=== PATIENT | male | born 1930 | race African-American/Black ===

== ENCOUNTER 2016-12-08 19:50 | Inpatient (IN) | payer MEDICARE, OTHER ==
[~2016-12-08] VITALS: Ht 175.3 cm; Wt 77.1 kg
[2016-12-08 20:20] VITALS: BP 126/73
[2016-12-08 20:34] LABS: BASOPHILS % (AUTO) 1.7 % (0.0-2.0); EOSINOPHILS % (AUTO) 1.8 % (0.0-3.0); LYMPHOCYTES % (AUTO) 21.5 % (20.0-45.0); MEAN CORPUSCULAR HEMOGLOBIN 32.4 PG (27.0-31.0); MEAN CORPUSCULAR HGB CONC 33.1 G/DL (32.0-36.0); MEAN CORPUSCULAR VOLUME 98 FL (80-99); MEAN PLATELET VOLUME 7.9 FL (6.5-10.1); MONOCYTES % (AUTO) 13.9 % (1.0-10.0); NEUTROPHILS % (AUTO) 61.2 % (45.0-75.0); PLATELET COUNT 225 K/UL (150-450); RED BLOOD COUNT 3.92 M/UL (4.70-6.10); RED CELL DISTRIBUTION WIDTH 11.9 % (11.6-14.8); WHITE BLOOD COUNT 5.7 K/UL (4.8-10.8)
[2016-12-08 20:52] LABS: TROPONIN I < 0.30 ng/mL (<=0.30)
[2016-12-08 20:56] LABS: ALANINE AMINOTRANSFERASE 66 U/L (3-41); ALBUMIN/GLOBULIN RATIO 0.6 (1.0-2.7); ANION GAP 13 (5-15); ASPARTATE AMINO TRANSFERASE 73 U/L (5-40); CALCIUM 9.9 mg/dL (8.6-10.2); CARBON DIOXIDE 29 mEQ/L (20-30); CHLORIDE 92 mEQ/L (98-107); CREATININE 1.1 mg/dL (0.7-1.2); HEMOLYSIS 29; POTASSIUM 4.9 mEQ/L (3.4-4.9); SODIUM 134 mEQ/L (135-145); TOTAL PROTEIN 9.7 g/dL (6.6-8.7)
[2016-12-08 21:07] LABS: ABG ALLEN TEST POSITIVE; ABG PCO2 48.1 mmHg (35.0-45.0)
--- NOTE | 2016-12-08 21:10 | Emergency Room Report ---
History of Present Illness General Chief Complaint: Dyspnea/Respdistress Source: EMS (JOSSELYN CAPELLAN M.D.) Present Illness HPI 86-year-old male presents to ED complaining of shortness of breath. States symptoms started today while at rest. Patient states he feels better upon arrival to the ER. Patient states he was just discharged from [facility] yesterday for same reason. Patient states he does not know why he is short of breath. Denies any chest pain. Denies any cough. Denies any fevers or chills. No other aggravating or relieving factors. Denies any other associated symptoms (JOSSELYN CAPELLAN M.D.) Allergies: Coded Allergies: No Known Allergies (Unverified , 12/08/16) Patient History Past Medical History: [place] Past Surgical History: none Pertinent Family History: none Social History: Denies: alcohol use, drug use, smoking Immunizations: UTD Reviewed Nursing Documentation: PMH: Agreed, PSxH: Agreed (JOSSELYN CAPELLAN M.D.) Nursing Documentation-PMH Past Medical History: No History, Except For Hx Cardiac Problems: Yes - SHREYA (JOSSELYN CAPELLAN M.D.) Review of Systems All Other Systems: negative except mentioned in HPI (JOSSELYN CAPELLAN M.D.) Physical Exam Vital Signs Date Time Temp Pulse Resp B/P Pulse Ox O2 Delivery O2 Flow Rate FiO2 12/08/16 19:44 84 16 162/90 95 Room Air 12/08/16 20:20 97.7 Sp02 EP Interpretation: reviewed, normal General Appearance: no apparent distress, alert, GCS 15, non-toxic, mild distress, thin Head: normocephalic, atraumatic Eyes: bilateral eye PERRL, bilateral eye normal inspection ENT: hearing grossly normal, normal pharynx, no angioedema, normal voice Neck: full range of motion, supple/symm/no masses Respiratory: chest non-tender, lungs clear, normal breath sounds, speaking full sentences Cardiovascular #1: regular rate, rhythm, no edema Cardiovascular #2: 2+ carotid (R), 2+ carotid (L), 2+ radial (R), 2+ radial (L) , 2+ dorsalis pedis (R), 2+ dorsalis pedis (L) Gastrointestinal: normal bowel sounds, non tender, soft, non-distended, no guarding, no rebound Rectal: deferred Genitourinary: normal inspection, no CVA tenderness Musculoskeletal: back normal, gait/station normal, normal range of motion, non- tender Neurologic: alert, oriented x3, responsive, motor strength/tone normal, sensory intact, speech normal Psychiatric: judgement/insight normal, memory normal, mood/affect normal, no suicidal/homicidal ideation Reflexes: 3+ bicep (R), 3+ bicep (L), 3+ tricep (R), 3+ tricep (L), 3+ knee (R) , 3+ knee (L) Skin: normal color, no rash, warm/dry, well hydrated Lymphatic: no adenopathy (JOSSELYN CAPELLAN M.D.) Medical Decision Making ER Course Pt s/o to me for CT scan report. CT showed no PE. Has CM with atelectasis vs infiltrate. (JARROD CASTILLO M.D.) EKG Diagnostic Results Rate: normal Rhythm: NSR ST Segments: no acute changes ASA given to the pt in ED: No (JOSSELYN CAPELLAN M.D.) Rhythm Strip Diag. Results EP Interpretation: yes Rhythm: NSR, no PVC's, no ectopy (JOSSELYN CAPELLAN M.D.) Chest X-Ray Diagnostic Results EP Interpretation: Yes Findings: no consolidation, no effusion, no pneumothorax, no acute cardiopulmonary disease, other - ?nodules on CXR Number of Views: 1 (JOSSELYN CAPELLAN M.D.) CT/MRI/US Diagnostic Results CT/MRI/US Diagnostic Results : Imaging Test Ordered: CT chest Impression Read by radiologist. No PE. RLL airspace opacity. (JARROD CASTILLO M.D.) Last Vital Signs Date Time Temp Pulse Resp B/P Pulse Ox O2 Delivery O2 Flow Rate FiO2 12/08/16 20:20 80 21 Room Air 12/08/16 20:20 97.7 126/73 98 (JOSSELYN CAPELLAN M.D.) Referrals: NOT CHOSEN IPA/,REFERRING (PCP) JOSSELYN CAPELLAN M.D. Dec 08, 2016 21:09 JARROD CASTILLO M.D. Dec 08, 2016 23:06
[2016-12-08] MEDS ORDERED: ALBUTEROL2.5 MG/3 M INH (21:19)
[2016-12-08 22:26] VITALS: BP 134/98
[2016-12-08] MEDS ORDERED: Nitroglycerin Subl 0.4mg tab (Bottle Of 25) SL PRN (22:45)
[2016-12-08] MEDS ORDERED: Miralax 17gm pkt ORAL PRN (22:45)
[2016-12-08] MEDS ORDERED: Mylanta II UD 30ml ORAL PRN (22:45)
[2016-12-08] MEDS ORDERED: Promethazine/Codeine 5ml UD ORAL PRN (22:45)
[2016-12-08] MEDS ORDERED: DuoNeb 0.5-3(2.5)mg/3ml neb HHN PRN (22:45)
[2016-12-09] VITALS: BP 139/87
[2016-12-09 03:43] VITALS: BP 127/81
[2016-12-09 06:31] LABS: ANION GAP 14 (5-15); CALCIUM 10.6 mg/dL (8.6-10.2); CARBON DIOXIDE 29 mEQ/L (20-30); CHLORIDE 93 mEQ/L (98-107); HEMOLYSIS 3; PHOSPHORUS 2.8 mg/dL (2.5-4.8); POTASSIUM 4.5 mEQ/L (3.4-4.9); SODIUM 136 mEQ/L (135-145)
[2016-12-09 06:42] LABS: BASOPHILS % (AUTO) 0.5 % (0.0-2.0); EOSINOPHILS % (AUTO) 0.3 % (0.0-3.0); LYMPHOCYTES % (AUTO) 9.3 % (20.0-45.0); MEAN CORPUSCULAR HEMOGLOBIN 31.1 PG (27.0-31.0); MEAN CORPUSCULAR HGB CONC 31.8 G/DL (32.0-36.0); MEAN CORPUSCULAR VOLUME 98 FL (80-99); MEAN PLATELET VOLUME 7.3 FL (6.5-10.1); MONOCYTES % (AUTO) 6.7 % (1.0-10.0); NEUTROPHILS % (AUTO) 83.1 % (45.0-75.0); PLATELET COUNT 221 K/UL (150-450); RED BLOOD COUNT 4.24 M/UL (4.70-6.10); RED CELL DISTRIBUTION WIDTH 12.1 % (11.6-14.8); WHITE BLOOD COUNT 9.9 K/UL (4.8-10.8)
[2016-12-09] MEDS ORDERED: Miralax 17gm pkt GT PRN (06:45)
[2016-12-09 08:13] VITALS: BP 120/66
[2016-12-09] MEDS: Cefepime HCl 1 GM in D5W 55 ML IV SCH ×2 (08:41→20:11)
[2016-12-09] MEDS: Heparin 5000 units/ml inj SUBQ SCH ×2 (08:42→20:11)
--- NOTE | 2016-12-09 09:22 | Diagnostic Imaging Report ---
ndication: SOB, chest pain Technique: IV administration nonionic contrast. Spiral acquisitions obtained from the lung bases to the lung apices. Multiplanar and 3-D reconstructions were generated. Total dose length product 735 mGycm. CTDIvol(s) 12x4, 20 mGy Comparison: None Findings: There is good quality pulmonary arterial opacification. No intraluminal filling defects or other findings to suggest acute pulmonary embolus are evident. No evidence of thoracic aneurysm or dissection. The right and left pulmonary arteries are ectatic, with the right measuring 2.9 cm and the left measuring 2.6. The heart is globally enlarged, but there is no focal right ventricular dilatation demonstrated. There is elevation right hemidiaphragm, and atelectasis and consolidation of much of the posterior right lower lobe. There is a calcified granuloma in the right upper lobe. Some atelectasis or scarring is seen in the posterior right upper lobe. There is thickening of the major fissure on the left. Atelectasis and/or scarring is seen at the left lung base. The pleural spaces are clear. No pericardial effusion. No mediastinal or hilar mass or adenopathy. There are large densely calcified precarinal lymph nodes and right paratracheal lymph nodes noted. Smaller calcifications are seen in subcarinal nodes as well. The included portions of the thyroid are unremarkable. No axillary or chest wall mass or adenopathy. The thoracic spine demonstrates severe kyphotic deformity, with over 90? of kyphotic angulation. There is a mild compression fracture deformity of the T1 vertebral body, and a more severe compression fracture deformity of the T3 vertebral body, the latter resulting in approximately 50% height loss anteriorly. The included upper abdominal anatomy demonstrates a 11 mm left upper pole renal cyst. There is a 4 mm high attenuation right upper pole renal lesion which is too small to characterize, measuring just under 70 Hounsfield units Impression: Negative for evidence of acute pulmonary embolus Somewhat dilated bilateral main pulmonary arteries, suggestive of but not diagnostic for pulmonary arterial hypertension Atelectasis and consolidation of much of the posterior right lower lobe. Associated elevation of the right hemidiaphragm Bilateral basilar atelectasis and/or scarring Evidence of old granulomatous disease, with a right upper lobe calcified granuloma and extensive calcification of multiple mediastinal lymph nodes Severe thoracic kyphotic deformity. Compression fracture deformities, age indeterminate of the T1 and T2 vertebral bodies. Incidental finding of right upper pole renal cyst 4 mm high attenuation right upper pole renal lesion, likely but not definitively a hyperdense proteinaceous cysts This agrees with the preliminary interpretation provided overnight by [facility] teleradiology service. The CT scanner at [facility] is accredited by the [employer] and the scans are performed using protocols designed to limit radiation exposure to as low as reasonably achievable to attain images of sufficient resolution adequate for diagnostic evaluation.
[2016-12-09] MEDS ORDERED: Promethazine/Codeine 5ml UD GT PRN (10:45)
[2016-12-09] MEDS ORDERED: Mylanta II UD 30ml GT PRN (10:45)
[2016-12-09 12:36] VITALS: BP 107/61
--- NOTE | 2016-12-09 13:38 | Consultation ---
History of Present Illness General Date patient seen: Dec 09, 2016 Chief Complaint: Dyspnea/Respdistress Referring physician: dr Patterson Reason for Consultation: Dyspnea Present Illness HPI 86-year-old male with hx of Gtube, bed bound, debilitated, with recent recurrent hospitalization at [facility], presents to ED complaining of shortness of breath and large amount of phlegm. His symptoms started on day of discharge from [facility]. Patient states he feels better upon arrival to the ER. Denies any chest pain. Patient was hypothermic. He looks cachectic, unable to speak full sentences. Family is at bed site and gives the PMHx. Allergies: Coded Allergies: No Known Allergies (Unverified , 12/08/16) Medication History Scheduled PRN Albuterol Sulfate* (Albuterol Sulfate Hhn*), 3 ML INH Q4H PRN for Shortness of Breath, (Reported) Patient History Healthcare decision maker Resuscitation status Full Code Advanced Directive on File No Past Medical/Surgical History Past Medical/Surgical History: (1) Feeding by G-tube (2) CVA (cerebral vascular accident) (3) Cachectic Review of Systems All Other Systems: negative except mentioned in HPI Physical Exam General Appearance: cachetic Lines, tubes and drains: peripheral HEENT: normocephalic, atraumatic Neck: non-tender Respiratory/Chest: rhonchi - left, rhonchi - right Cardiovascular/Chest: normal peripheral pulses, normal rate Abdomen: normal bowel sounds, non tender Genitourinary/Rectal: normal genital exam, normal rectal exam Extremities: normal range of motion, other - contractures Neurologic: health safety and environment manager II-XII grossly normal, no motor/sensory deficits Lymphatic: anterior cervical Last 24 Hour Vital Signs Date Time Temp Pulse Resp B/P Pulse Ox O2 Delivery O2 Flow Rate FiO2 12/09/16 12:36 97.5 101 22 107/61 94 Nasal Cannula 2.0 12/09/16 08:13 98.1 108 22 120/66 96 Nasal Cannula 2.0 12/09/16 07:34 112 12/09/16 07:27 98 18 96 Nasal Cannula 2.0 28 12/09/16 07:17 100 19 Room Air 12/09/16 07:17 28 12/09/16 07:17 100 18 96 2.0 28 12/09/16 04:00 92 12/09/16 03:43 97.7 85 20 127/81 98 Nasal Cannula 12/09/16 00:42 71 19 Room Air 12/09/16 00:00 79 12/08/16 22:48 97.9 81 19 134/98 99 Room Air 12/08/16 22:26 97.9 81 19 134/98 99 Room Air 12/08/16 20:20 80 21 Room Air 12/08/16 20:20 97.7 80 21 126/73 98 Room Air 12/08/16 19:44 84 16 162/90 95 Room Air Intake and Output 12/08/16 12/09/16 19:00 07:00 Output Total 425 ml Balance -425 ml Output Urine Total 425 ml # Voids 2 # Bowel Movements 1 Laboratory Tests Test 12/08/16 20:14 12/08/16 20:36 12/09/16 02:20 12/09/16 04:35 White Blood Count 5.7 K/UL (4.8-10.8) 9.9 K/UL (4.8-10.8) # Red Blood Count 3.92 M/UL (4.70-6.10) L 4.24 M/UL (4.70-6.10) L Hemoglobin 12.7 G/DL (14.2-18.0) L 13.2 G/DL (14.2-18.0) L Hematocrit 38.4 % (42.0-52.0) L 41.5 % (42.0-52.0) L Mean Corpuscular Volume 98 FL (80-99) 98 FL (80-99) Mean Corpuscular Hemoglobin 32.4 PG (27.0-31.0) H 31.1 PG (27.0-31.0) H Mean Corpuscular Hemoglobin Concent 33.1 G/DL (32.0-36.0) 31.8 G/DL (32.0-36.0) L Red Cell Distribution Width 11.9 % (11.6-14.8) 12.1 % (11.6-14.8) Platelet Count 225 K/UL (150-450) 221 K/UL (150-450) Mean Platelet Volume 7.9 FL (6.5-10.1) 7.3 FL (6.5-10.1) Neutrophils (%) (Auto) 61.2 % (45.0-75.0) 83.1 % (45.0-75.0) H Lymphocytes (%) (Auto) 21.5 % (20.0-45.0) 9.3 % (20.0-45.0) L Monocytes (%) (Auto) 13.9 % (1.0-10.0) H 6.7 % (1.0-10.0) Eosinophils (%) (Auto) 1.8 % (0.0-3.0) 0.3 % (0.0-3.0) Basophils (%) (Auto) 1.7 % (0.0-2.0) 0.5 % (0.0-2.0) D-Dimer 858 ng/mL (<500) H Sodium Level 134 mEQ/L (135-145) L 136 mEQ/L (135-145) Potassium Level 4.9 mEQ/L (3.4-4.9) 4.5 mEQ/L (3.4-4.9) Chloride Level 92 mEQ/L (98-107) L 93 mEQ/L (98-107) L Carbon Dioxide Level 29 mEQ/L (20-30) 29 mEQ/L (20-30) Anion Gap 13 (5-15) 14 (5-15) Blood Urea Nitrogen 27 mg/dL (7-23) H 22 mg/dL (7-23) Creatinine 1.1 mg/dL (0.7-1.2) 1.0 mg/dL (0.7-1.2) Estimat Glomerular Filtration Rate mL/min (>60) mL/min (>60) Glucose Level 97 mg/dL (74-106) 89 mg/dL (74-106) Calcium Level 9.9 mg/dL (8.6-10.2) 10.6 mg/dL (8.6-10.2) H Total Bilirubin 0.5 mg/dL (0.0-1.2) Aspartate Amino Transf (AST/SGOT) 73 U/L (5-40) H Alanine Aminotransferase (ALT/SGPT) 66 U/L (3-41) H Alkaline Phosphatase 70 U/L (40-129) Total Creatine Kinase 407 U/L (38-174) H Creatine Kinase MB 5.0 ng/mL (< 6.7) Creatine Kinase MB Relative Index 1.2 Troponin I < 0.30 ng/mL (<=0.30) Pro-B-Type Natriuretic Peptide 98 pg/mL (0-450) Total Protein 9.7 g/dL (6.6-8.7) H Albumin 3.8 g/dL (3.5-5.2) 3.5 g/dL (3.5-5.2) Globulin 5.9 g/dL Albumin/Globulin Ratio 0.6 (1.0-2.7) L Arterial Blood pH 7.419 (7.350-7.450) Arterial Blood Partial Pressure CO2 48.1 mmHg (35.0-45.0) H Arterial Blood Partial Pressure O2 71.1 mmHg (75.0-100.0) L Arterial Blood HCO3 30.4 mmol/L (22.0-26.0) H Arterial Blood Oxygen Saturation 94.2 % (92.0-98.0) Arterial Blood Base Excess 5.0 Jerrod Test Positive Urine Legionella Antigen Pending Phosphorus Level 2.8 mg/dL (2.5-4.8) Microbiology Date/Time Source Procedure Growth Status 12/09/16 02:20 Sputum Gram Stain - Final Resulted 12/09/16 02:20 Sputum Sputum Culture Pending Resulted Height (Feet): 5 Height (Inches): 9.00 Weight (Pounds): 170 Medications Current Medications Medications (Trade) Dose Ordered Sig/Ladarius Route PRN Reason Start Time Stop Time Status Last Admin Dose Admin Acetaminophen (Tylenol) 650 mg Q4H PRN ORAL fever 12/09/16 10:45 01/08/17 10:44 Al Hydroxide/Mg Hydroxide (Mylanta II) 30 ml Q6H PRN GT dyspepsia 12/09/16 10:45 01/08/17 10:44 Albuterol/ Ipratropium 3 ml 3 ml EVERY 4 HOURS PRN HHN Shortness of Breath 12/08/16 22:45 12/13/16 22:44 12/09/16 07:17 Cefepime HCl/ Dextrose (Maxipime/D5W) 55 ml @ 110 mls/hr EVERY 12 HOURS IV 12/09/16 09:00 12/16/16 08:59 12/09/16 08:41 Heparin Sodium (Porcine) (Heparin 5000 units/ml) 5,000 units EVERY 12 HOURS SUBQ 12/09/16 09:00 01/08/17 08:59 12/09/16 08:42 Nitroglycerin (Ntg) 0.4 mg Q5M PRN SL Prn Chest Pain 12/08/16 22:45 01/07/17 22:44 Ondansetron HCl (Zofran) 4 mg Q6H PRN IVP Nausea & Vomiting 12/08/16 22:45 01/07/17 22:44 Polyethylene Glycol (Miralax) 17 gm DAILYPRN PRN GT Constipation 12/09/16 06:45 01/08/17 06:44 Promethazine HCl/ Codeine (Phenergan with Codeine) 5 ml Q4H PRN GT For Cough 12/09/16 10:45 01/08/17 10:44 Temazepam (Restoril) 15 mg HSPRN PRN GT Insomnia 12/09/16 06:45 12/16/16 06:44 Assessment/Plan Problem List: (1) Pneumonia ICD Codes: J18.9 - Pneumonia, unspecified organism SNOMED: 723942168 (2) Cachectic ICD Codes: R64 - Cachexia SNOMED: 562589442 (3) CVA (cerebral vascular accident) ICD Codes: I63.9 - Cerebral infarction, unspecified SNOMED: 481736228 (4) Feeding by G-tube ICD 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
--- NOTE | 2016-12-09 14:22 | Consultation ---
Consult Note Consult Note ID CONSULT: Phoebe# [id number] Assessment/Plan ASSESSMENT: 86 y/o male with: // Probable partially treated PNA - SGS polymicrobial, Cx, legionella UAg pending - CTA: Negative for evidence of acute pulmonary embolus. Atelectasis and consolidation of much of the posterior right lower lobe. Bilateral basilar atelectasis and/or scarring. Evidence of old granulomatous disease, with a right upper lobe calcified granuloma and extensive calcification of multiple mediastinal lymph nodes - recent admission [facility] // Afebrile without leukocytosis // Elevated LFTs / transaminitis // h/o CVA // h/o CAD // Dysphagia SP PEG // NKDA // Full Code PLAN: - continue empiric cefepime d# 1, add levaquin d# 1 - f/u cultures, legionella - f/u doppler, TTE - monitor CBC, temperatures - monitor BMP - monitor CXR d/w family at bedside Thanks! Will follow JAZLYN PAYTON Dec 09, 2016 14:22
--- NOTE | 2016-12-09 14:46 | Cardiology Report ---
APPROVED REPORT EKG Measurement Heart [id number] ID [id number] Sinus rhythm with premature atrial complexes Left axis deviation Voltage criteria for left ventricular hypertrophy Abnormal ECG
--- NOTE | 2016-12-09 15:17 | Diagnostic Imaging Report ---
Indication: SOB Technique: One view of the chest Comparison: none Findings: There is considerable kyphotic deformity. Extensive ossifications are seen involving hilar and mediastinal lymph nodes. No definite acute infiltrates, effusions or congestion. Normal heart size. Impression: No definite acute process Evidence of old granulomatous disease Thoracic kyphosis This agrees with the preliminary interpretation provided by the emergency room physician
[2016-12-09 16:00] VITALS: BP_SYST 91; BP_SYST 96; BP_DIAS 53; BP_DIAS 59
[2016-12-09] MEDS: Levofloxacin 500mg tab PEG SCH (16:19)
--- NOTE | 2016-12-09 17:13 | Cardiology Report ---
APPROVED REPORT EXAM: Two-dimensional and M-mode echocardiogram with Doppler and color Doppler. INDICATION Left Ventricular Function M-Mode DIMENSIONS IVSd1.3 (0.7-1.1cm)Left Atrium (MM)3.1 (1.6-4.0cm) LVDd4.2 (3.5-5.6cm)Aortic Root3.0 (2.0-3.7cm) PWd.9 (0.7-1.1cm)Aortic Cusp Exc.2.0 (1.5-2.0cm) LVDs2.2 (2.5-4.0cm) PWs1.4 cm Technically difficult study due to poor acoustic windows. Study quality precludes accurate assessment of regional wall motion. Normal left ventricular chamber size, systonlic function and wall motion. Left ventricular ejection fraction estimated to be 50 %. Mild left ventricular hypertrophy. No evidence of pericardial fat or effusion. All other cardiac chamber sizes are within normal limits. Mild focal aortic valve sclerosis with adequate cusp excursion. Mildly thickened mitral valve leaflets with normal excursion. Mild mitral annulus and aortic root calcification. Pulmonic valve not well visualized. Normal tricuspid valve structure. IVC not obtainable. A color flow and spectral Doppler study was performed and revealed: Moderate aortic regurgitation. Trace mitral regurgitation. Mitral diastolic velocities suggest reduced left ventricular relaxation (Grade I). Mild to moderate tricuspid regurgitation. Tricuspid systolic velocities suggests peak right ventricular systolic pressure of 39 mmHg, consistent with mild pulmonary hypertension. No pulmonic regurgitation present.
--- NOTE | 2016-12-09 17:44 | History & Physical ---
History and Physical History & Physicial Dictated for Int Med-Dr Patterson no. [id number]. LION KNOX Dec 09, 2016 17:44
[2016-12-09 20:00] VITALS: BP 91/53
--- NOTE | 2016-12-09 20:39 | Consultation ---
DATE OF CONSULTATION: 12/09/2016 INFECTIOUS DISEASE CONSULTATION REQUESTING PHYSICIAN: Eros Patterson M.D. REASON FOR CONSULTATION: Pneumonia. HISTORY OF PRESENT ILLNESS: This is an 86-year-old male, admitted on 12/09/2016 with shortness of breath. The patient was recently admitted to [facility] x2 with similar complaints, with complains of productive cough and thick white sputum. The sputum Gram-stain is polymicrobial and culture is pending. Legionella urine antigen is pending. A CT angiogram of the chest was negative for pulmonary embolus, but noted atelectasis and consolidation of much of the posterior right lower lobe and bibasilar atelectasis and/or scarring. Also evidence of prior granulomatous disease. He is afebrile without leukocytosis and has been started on empiric cefepime and ID now consulted to assist in management. PAST MEDICAL HISTORY: 1. Stroke. 2. Dysphagia. 3. Prostate cancer. 4. Coronary artery disease status post stenting x2. PAST SURGICAL HISTORY: 1. PEG tube placement. 2. TURP. MEDICATIONS: Cefepime. ALLERGIES: No known drug allergies. SOCIAL HISTORY: The patient has family involved in his care. FAMILY HISTORY: Noncontributory. REVIEW OF SYSTEMS: As per history of present illness. Ten systems reviewed. All pertinent positives and negatives noted. PHYSICAL EXAMINATION: GENERAL: No apparent distress. Nontoxic appearing. VITAL SIGNS: Maximum temperature 98.1 degrees, blood pressure 107/61, heart rate 101, respiratory rate 22, and saturating 94% on two liters nasal cannula. CARDIOVASCULAR: Regular rate and rhythm. No murmurs. PULMONARY: Coarse breath sounds bilaterally. ABDOMEN: Bowel sounds present. Soft, nondistended, and nontender. EXTREMITIES: No edema. LABORATORY AND DIAGNOSTIC DATA: White blood cell count 9.9, hemoglobin 13.2, and platelets 221,000. Sodium 136, potassium 4.5, chloride 93, bicarbonate 29, BUN 22, and creatinine 1. D-dimer 158. AST 73, ALT 66, and alkaline phosphatase 70. Total bilirubin 0.5. Albumin 3.8. Creatine kinase 407. Troponin negative x1. Microbiology, 1. On 12/09/2016, sputum culture pending with polymicrobial Gram-stain. 2. On 12/09/2016, Legionella urine antigen pending. Imaging, 3. CT angiogram negative for pulmonary embolus. Please refer to the full report for full details. 4. On 12/09/2016, bilateral lower extremity Doppler ultrasound pending. 5. On 12/09/2016, echocardiogram pending. ASSESSMENT: 1. Probable partially treated pneumonia. Sputum Gram-stain is polymicrobial and culture and legionella urine antigen are pending. CT angiogram negative for pulmonary embolus and shows atelectasis and consolidation of much of the posterior right lower lobe and bibasilar atelectasis and/or scarring with evidence of old granulomatous disease. 2. Afebrile without leukocytosis. 3. Elevated liver function tests/transaminitis. 4. No known drug allergies. 5. Full Code. PLAN: 1. Continue empiric cefepime day #1 and add Levaquin day #1. 2. Follow up cultures and Legionella urine antigen. 3. Followup Doppler and echocardiogram. 4. Monitor CBC and temperatures. 5. Monitor BMP. 6. Monitor chest x-ray. Thank you. We will follow. Nino Salazar M.D. DR: ABHISHEK JOB#: [id number] CC: Darian Ludwig M.D. Guru Mahajan M.D
--- NOTE | 2016-12-09 20:58 | Wound Care Consultation ---
Wound Assessment Wound Assessment #1: Wound Present on Admission: Yes New Wound: No Status Change of Wound: No Wound Location Body Site Modif: mid Wound Location Body Site: sacral Wound Type: pressure ulcer Serafin Test: Does not Serafin Pressure Ulcer Stage: deep tissue injury Wound Thickness: Full Thickness Wound Length: 3.0 Wound Width: 2.5 Wound Depth: utd Percent of Wound Purple/Maroon: 100 Wound Drainage Amount: None Wound Drainage Odor: None/Absent Tissue Surrounding Wound: Erythemic Wound General Appearance: Reddened Wound Assessment #2: Wound Number: #2 Wound Present on Admission: Yes New Wound: No Status Change of Wound: No Wound Location Body Site: coccyx Wound Type: pressure ulcer Serafin Test: Does not Serafin Pressure Ulcer Stage: II Wound Thickness: Partial Thickness Wound Length: 1.0 Wound Width: 0.5 Wound Depth: 0.1 Percent of Wound [place]/Red: 100 Wound Drainage Amount: None Wound Drainage Odor: None/Absent Tissue Surrounding Wound: Erythemic Wound General Appearance: Reddened Wound Comment #1 Sacral DTI pressure ulcer purple in color #2 Coccyx stage II pressure ulcer Recommendation -Sacral and coccyx area Cleanse with saline pat dry apply Triad cream cover with bordered gauze daily and PRN soiled/dislodged -Keep clean and dry -Turn and reposition -Optimize nutrition -Offload both heels -Low air loss overlay mattress -Assess and f/u accordingly for any changes BATSHEVA KRISHNA RN Dec 09, 2016 20:58
--- NOTE | 2016-12-09 21:25 | Wound Care Consultation ---
Wound Assessment Wound Assessment #1: Wound Present on Admission: Yes New Wound: No Status Change of Wound: No Wound Location Body Site: coccyx Wound Type: pressure ulcer Serafin Test: Does not Serafin Pressure Ulcer Stage: II Wound Thickness: Partial Thickness Wound Length: 1.0 Wound Width: 0.5 Wound Depth: 0.1 Percent of Wound [facility]/Red: 100 Wound Drainage Amount: None Wound Drainage Odor: None/Absent Tissue Surrounding Wound: Erythemic Wound General Appearance: Reddened Wound Assessment #2: Wound Number: #2 Wound Present on Admission: Yes New Wound: No Status Change of Wound: No Wound Location Body Site Modif: right, upper Wound Location Body Site: thigh Wound Type: traumatic injury Serafin Test: Does not Serafin Traumatic Injury Wounds: Skin Tear Wound Thickness: Partial Thickness Wound Length: 2.0 Wound Width: 2.0 Wound Depth: 0.1 Percent of Wound [facility]/Red: 100 Wound Drainage Description: Serosanguineous Wound Drainage Amount: Scant Wound Drainage Odor: None/Absent Tissue Surrounding Wound: Erythemic Wound General Appearance: Reddened Wound Assessment #3: Wound Number: #3 Wound Present on Admission: Yes New Wound: No Status Change of Wound: No Wound Location Body Site Modif: right Wound Location Body Site: scapula Wound Type: scab Serafin Test: Does not Serafin Wound Thickness: Full Thickness Wound Drainage Amount: None Wound Drainage Odor: None/Absent Tissue Surrounding Wound: full thickness scar tissue Wound General Appearance: Asymptomatic Wound Assessment #4: Wound Number: #4 Wound Present on Admission: Yes New Wound: No Status Change of Wound: No Wound Location Body Site Modif: left Wound Location Body Site: scapula Wound Type: scab Serafin Test: Does not Serafin Wound Thickness: Full Thickness Wound Drainage Amount: None Wound Drainage Odor: None/Absent Tissue Surrounding Wound: full thickness scar tissue Wound General Appearance: Asymptomatic Wound Assessment #5: Wound Number: #5 Wound Present on Admission: Yes New Wound: No Status Change of Wound: No Wound Location Body Site Modif: right, lower, medial Wound Location Body Site: leg Wound Type: ecchymosis - with scattered scabs Serafin Test: Does not Serafin Wound Length: 8.5 Wound Width: 4.5 Wound Drainage Amount: None Wound Drainage Odor: None/Absent Tissue Surrounding Wound: Erythemic Wound General Appearance: Asymptomatic, Reddened Wound Assessment #6: Wound Number: #6 Wound Present on Admission: Yes New Wound: No Status Change of Wound: No Wound Location Body Site Modif: left, lower, medial Wound Location Body Site: leg Wound Type: traumatic injury Serafin Test: Does not Serafin Traumatic Injury Wounds: Skin Tear Wound Thickness: Partial Thickness Wound Length: 2.0 Wound Width: 0.2 Wound Drainage Amount: None Wound Drainage Odor: None/Absent Tissue Surrounding Wound: Erythemic Wound General Appearance: Reddened Wound Comment #1 Coccyx with partial thickness scar tissue #2 Right upper thigh skin tear #3 Right medial lower leg scattered dry scabs surrounding skin with redness #4 Left medial lower leg skin tear surrounding skin with redness #5 Right scapula with full thickness scar tissue with scattered scabs #6 Left scapula with full thickness scar tissue with scattered scabs Recommendation -Local wound care per protocol -Offload both heels -Keep clean and dry -Turn and reposition -Optimize nutrition -Low air loss overlay mattress -Assess and f/u accordingly for any changes BATSHEVA KRISHNA RN Dec 09, 2016 21:25
--- NOTE | 2016-12-09 21:40 | Wound Nurse Progress Note ---
Wound RN Progress Note Wound Consult wrong entry, wound care documentation on 12/09/16 @ 2058 BATSHEVA KRISHNA RN Dec 09, 2016 21:40
[2016-12-10] VITALS: BP 112/50
--- NOTE | 2016-12-10 01:39 | History and Physical Report ---
DATE OF ADMISSION: 12/08/2016 CHIEF COMPLAINT: The patient is an 86-year-old male, who presents with complaint of shortness of breath. HISTORY OF PRESENT ILLNESS: Apparently, the patient was discharged from [facility] one day previously. The patient presented to [facility] Emergency Room complaining of shortness of breath. A chest x-ray revealed a right lower lobe pneumonia. The patient was admitted for partially treated right lower lobe pneumonia. Of note, much of the history and physical is taken from the patient's chart and the patient's family is at the bedside. The patient himself is unable to offer much of the history and physical. REVIEW OF SYSTEMS: Constitutional: The patient denies weight loss or weight gain. The patient denies fevers or chills. HEENT: The patient denies ear or throat pain. Cardiovascular: The patient denies palpitations or chest pain. Chest: The patient complains of shortness of breath as above. The patient has wheezes. Abdomen: The patient denies nausea, vomiting, or constipation. Genitourinary: The patient denies dysuria or increased frequency of urination. Neuromuscular: The patient denies seizures or generalized weakness. PAST MEDICAL HISTORY: Significant for: 1. Coronary artery disease, status post myocardial infarction. 2. Cerebrovascular accident. 3. Dysphagia, status post PEG. PAST SURGICAL HISTORY: Significant for PEG placement as above. CURRENT MEDICATIONS: Unknown. ALLERGIES: No known drug allergies. SOCIAL HISTORY: The patient is . The patient denies tobacco or alcohol use. PHYSICAL EXAMINATION: VITAL SIGNS: Temperature 98.1 degrees, respirations 22, pulse 108, and blood pressure 120/66. GENERAL: The patient is a well-nourished male, in no apparent distress. HEENT: Eyes, pupils are equal and responsive to light and accommodation. Extraocular movements are intact. NECK: Supple. No lymphadenopathy. CHEST: Lungs are clear to auscultation bilaterally without wheezes or rales. CARDIOVASCULAR: Regular rhythm and rate. S1 and S2 normal without murmurs, rubs, gallops. ABDOMEN: Soft, nontender, and nondistended. Positive bowel sounds. No hepatosplenomegaly. Currently, no rebound or guarding noted. EXTREMITIES: Negative for clubbing, cyanosis, or edema. RECTAL/GENITAL: Refused. NEUROLOGIC: Cranial nerves II through XII are grossly intact without focal deficits. LABORATORY STUDIES: WBC 5.2, hemoglobin 12.7, hematocrit 30.4, and platelets 222,000. Sodium 134, potassium 4.9, chloride 92, CO2 29, BUN 27, creatinine 1.1, and glucose 97. Liver function tests mildly elevated with an AST of 73, ALT of 66. Troponin less than 0.3. CT angio of the chest was negative for pulmonary embolism. A chest x-ray revealed a right lower lobe pneumonia. ASSESSMENT: This is an 86-year-old male. 1. Right lower lobe pneumonia. 2. Shortness of breath. 3. Coronary artery disease. 4. Cerebrovascular disease. 5. Dysphagia. TREATMENT: 1. Right lower lobe pneumonia. A Pulmonary consultation with Dr. Paty Eduardo. The patient has been started empirically on intravenous cefepime and Levaquin. An Infectious Disease consultation with Dr. Nino Salazar. 2. Coronary artery disease, status post myocardial infarction. 3. Cerebrovascular disease, status post cerebrovascular accident. 4. Dysphagia. The patient is status post PEG placement . This has been clean for the majority medically. John Nance M.D. DR: Layo JOB#: [id number] CC:
[2016-12-10 04:00] VITALS: BP 128/60
[2016-12-10 07:04] LABS: BASOPHILS % (AUTO) 0.3 % (0.0-2.0); EOSINOPHILS % (AUTO) 0.2 % (0.0-3.0); LYMPHOCYTES % (AUTO) 7.9 % (20.0-45.0); MEAN CORPUSCULAR HEMOGLOBIN 31.4 PG (27.0-31.0); MEAN CORPUSCULAR HGB CONC 31.8 G/DL (32.0-36.0); MEAN CORPUSCULAR VOLUME 99 FL (80-99); MEAN PLATELET VOLUME 7.1 FL (6.5-10.1); MONOCYTES % (AUTO) 7.4 % (1.0-10.0); NEUTROPHILS % (AUTO) 84.2 % (45.0-75.0); PLATELET COUNT 196 K/UL (150-450); RED BLOOD COUNT 3.67 M/UL (4.70-6.10); RED CELL DISTRIBUTION WIDTH 12.1 % (11.6-14.8); WHITE BLOOD COUNT 11.6 K/UL (4.8-10.8)
[2016-12-10 07:33] LABS: ALANINE AMINOTRANSFERASE 47 U/L (3-41); ALBUMIN/GLOBULIN RATIO 0.5 (1.0-2.7); ANION GAP 12 (5-15); ASPARTATE AMINO TRANSFERASE 39 U/L (5-40); CALCIUM 9.3 mg/dL (8.6-10.2); CARBON DIOXIDE 29 mEQ/L (20-30); CHLORIDE 96 mEQ/L (98-107); CREATININE 1.2 mg/dL (0.7-1.2); HEMOLYSIS 7; POTASSIUM 4.7 mEQ/L (3.4-4.9); SODIUM 137 mEQ/L (135-145); TOTAL PROTEIN 8.7 g/dL (6.6-8.7)
--- NOTE | 2016-12-10 07:40 | Pulmonology Progress Note ---
Assessment/Plan Assessment/Plan ASSESSMENT PNA dysphagia, G tube hx of CVA cachexia elevated transaminitis mild pulmonary HTN hx of CAD PLAN OF CARE O2 HHN prn abx sputum cx ID follows initial CXR no acute disease CTA no acute PE ( D dimer was elevated) fup with CXR today GT feeding, monitor tolerance strict aspiration precautions, antitussive prn Venous Duplex BLE ECHO with EF 50% and RVSP of 39 c/w mild pulmonary HTN Bowel regimen LFT trending down transfer to [facility] floor case discussed and evaluated by supervising physician Subjective Allergies: Coded Allergies: No Known Allergies (Unverified , 12/08/16) Subjective afebrile, mild leukocytosis today on O2 2 L via NC , sat stable, no signs of respiratory distress denies chest pain, SOB today Objective Last 24 Hour Vital Signs Date Time Temp Pulse Resp B/P Pulse Ox O2 Delivery O2 Flow Rate FiO2 12/10/16 04:00 71 12/10/16 04:00 97.7 77 16 128/60 97 Nasal Cannula 2.0 12/10/16 00:00 85 12/10/16 00:00 97.3 91 20 112/50 96 Nasal Cannula 2.0 12/09/16 20:00 97.4 86 22 91/53 98 Nasal Cannula 2.0 12/09/16 20:00 82 12/09/16 18:40 89 18 Room Air 12/09/16 16:00 98.1 86 20 96/59 94 Nasal Cannula 2.0 12/09/16 16:00 88 12/09/16 12:36 97.5 101 22 107/61 94 Nasal Cannula 2.0 12/09/16 08:13 98.1 108 22 120/66 96 Nasal Cannula 2.0 Intake and Output 12/09/16 12/10/16 19:00 07:00 Intake Total 360 ml 390 ml Balance 360 ml 390 ml Intake Free Water 80 ml 30 ml IV Total 55 ml Tube Feeding 225 ml 360 ml # Voids 3 4 # Bowel Movements 2 2 General Appearance: no acute distress, other - awake, alert, responsive, elderly AA male HEENT: normocephalic, atraumatic, anicteric, mucous membranes moist Respiratory/Chest: lungs clear - with moderate air entry Cardiovascular: normal peripheral pulses, normal rate, regular rhythm - SR on tele , no JVD Abdomen: normal bowel sounds, soft, non tender, non distended Genitourinary: normal external genitalia Extremities: no edema, pedal pulses normal Neurologic/Psychiatric: alert, responsive Musculoskeletal: atrophy - BLE Microbiology Date/Time Source Procedure Growth Status 12/09/16 02:20 Sputum Gram Stain - Final Resulted 12/09/16 02:20 Sputum Sputum Culture Pending Resulted Laboratory Tests 12/10/16 06:00: White Blood Count 11.6H, Red Blood Count 3.67L, Hemoglobin 11.5L, Hematocrit 36.3L, Mean Corpuscular Volume 99, Mean Corpuscular Hemoglobin 31.4H, Mean Corpuscular Hemoglobin Concent 31.8L, Red Cell Distribution Width 12.1, Platelet Count 196, Mean Platelet Volume 7.1, Neutrophils (%) (Auto) 84.2H, Lymphocytes (%) (Auto) 7.9L, Monocytes (%) (Auto) 7.4, Eosinophils (%) (Auto) 0.2, Basophils (%) (Auto) 0.3, Sodium Level 137, Potassium Level 4.7, Chloride Level 96L, Carbon Dioxide Level 29, Anion Gap 12, Blood Urea Nitrogen 30H, Creatinine 1.2, Estimat Glomerular Filtration Rate , Glucose Level 130H, Calcium Level 9.3, Total Bilirubin 0.5, Aspartate Amino Transf (AST/SGOT) 39, Alanine Aminotransferase (ALT/SGPT) 47H, Alkaline Phosphatase 63, Pro-B-Type Natriuretic Peptide [Pending], Total Protein 8.7, Albumin 3.1L, Globulin 5.6, Albumin/Globulin Ratio 0.5L Current Medications Medications (Trade) Dose Ordered Sig/Ladarius Route PRN Reason Start Time Stop Time Status Last Admin Dose Admin Acetaminophen (Tylenol) 650 mg Q4H PRN ORAL fever 12/09/16 10:45 01/08/17 10:44 Al Hydroxide/Mg Hydroxide (Mylanta II) 30 ml Q6H PRN GT dyspepsia 12/09/16 10:45 01/08/17 10:44 Albuterol/ Ipratropium 3 ml 3 ml EVERY 4 HOURS PRN HHN Shortness of Breath 12/08/16 22:45 12/13/16 22:44 12/09/16 07:17 Cefepime HCl/ Dextrose (Maxipime/D5W) 55 ml @ 110 mls/hr EVERY 12 HOURS IV 12/09/16 09:00 12/16/16 08:59 12/09/16 20:11 Heparin Sodium (Porcine) (Heparin 5000 units/ml) 5,000 units EVERY 12 HOURS SUBQ 12/09/16 09:00 01/08/17 08:59 12/09/16 20:11 Levofloxacin (Levaquin) 500 mg DAILY PEG 12/09/16 16:00 12/16/16 15:59 12/09/16 16:19 Nitroglycerin (Ntg) 0.4 mg Q5M PRN SL Prn Chest Pain 12/08/16 22:45 01/07/17 22:44 Ondansetron HCl (Zofran) 4 mg Q6H PRN IVP Nausea & Vomiting 12/08/16 22:45 01/07/17 22:44 12/09/16 14:21 Polyethylene Glycol (Miralax) 17 gm DAILYPRN PRN GT Constipation 12/09/16 06:45 01/08/17 06:44 Promethazine HCl/ Codeine (Phenergan with Codeine) 5 ml Q4H PRN GT For Cough 12/09/16 10:45 01/08/17 10:44 Temazepam (Restoril) 15 mg HSPRN PRN GT Insomnia 12/09/16 06:45 12/16/16 06:44 Lakhwinder ([facility])Lora NP Dec 10, 2016 07:40
[2016-12-10 08:15] VITALS: BP 106/60
[2016-12-10] MEDS: Cefepime HCl 1 GM in D5W 55 ML IV SCH ×2 (08:17→21:26)
[2016-12-10] MEDS: Levofloxacin 500mg tab PEG SCH (08:17)
[2016-12-10] MEDS: Heparin 5000 units/ml inj SUBQ SCH ×2 (08:20→21:28)
[2016-12-10 12:15] VITALS: BP 110/59
--- NOTE | 2016-12-10 12:18 | Internal Med Progress Note ---
Subjective Date of Service: Dec 10, 2016 Physician Name Lion Knox Attending Physician Eros Patterson MD Current Medications Medications (Trade) Dose Ordered Sig/Ladarius Route PRN Reason Start Time Stop Time Status Last Admin Dose Admin Acetaminophen (Tylenol) 650 mg Q4H PRN ORAL fever 12/09/16 10:45 01/08/17 10:44 Al Hydroxide/Mg Hydroxide (Mylanta II) 30 ml Q6H PRN GT dyspepsia 12/09/16 10:45 01/08/17 10:44 Albuterol/ Ipratropium 3 ml 3 ml EVERY 4 HOURS PRN HHN Shortness of Breath 12/08/16 22:45 12/13/16 22:44 12/09/16 07:17 Cefepime HCl/ Dextrose (Maxipime/D5W) 55 ml @ 110 mls/hr EVERY 12 HOURS IV 12/09/16 09:00 12/16/16 08:59 12/10/16 08:17 Heparin Sodium (Porcine) (Heparin 5000 units/ml) 5,000 units EVERY 12 HOURS SUBQ 12/09/16 09:00 01/08/17 08:59 12/10/16 08:20 Levofloxacin (Levaquin) 500 mg DAILY PEG 12/09/16 16:00 12/16/16 15:59 12/10/16 08:17 Nitroglycerin (Ntg) 0.4 mg Q5M PRN SL Prn Chest Pain 12/08/16 22:45 01/07/17 22:44 Ondansetron HCl (Zofran) 4 mg Q6H PRN IVP Nausea & Vomiting 12/08/16 22:45 01/07/17 22:44 12/09/16 14:21 Polyethylene Glycol (Miralax) 17 gm DAILYPRN PRN GT Constipation 12/09/16 06:45 01/08/17 06:44 Promethazine HCl/ Codeine (Phenergan with Codeine) 5 ml Q4H PRN GT For Cough 12/09/16 10:45 01/08/17 10:44 Temazepam (Restoril) 15 mg HSPRN PRN GT Insomnia 12/09/16 06:45 12/16/16 06:44 Allergies: Coded Allergies: No Known Allergies (Unverified , 12/08/16) ROS Limited/Unobtainable: Yes Subjective 86 YO M admitted with shortness of breath; now RLL pneumonia. Cover for Int Michael-Dr Patterson. Tolerating nasal canula. 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 normal Skin: normal pigmentation, warm/dry Laboratory Tests Test 12/10/16 06:00 White Blood Count 11.6 K/UL (4.8-10.8) H Red Blood Count 3.67 M/UL (4.70-6.10) L Hemoglobin 11.5 G/DL (14.2-18.0) L Hematocrit 36.3 % (42.0-52.0) L Mean Corpuscular Volume 99 FL (80-99) Mean Corpuscular Hemoglobin 31.4 PG (27.0-31.0) H Mean Corpuscular Hemoglobin Concent 31.8 G/DL (32.0-36.0) L Red Cell Distribution Width 12.1 % (11.6-14.8) Platelet Count 196 K/UL (150-450) Mean Platelet Volume 7.1 FL (6.5-10.1) Neutrophils (%) (Auto) 84.2 % (45.0-75.0) H Lymphocytes (%) (Auto) 7.9 % (20.0-45.0) L Monocytes (%) (Auto) 7.4 % (1.0-10.0) Eosinophils (%) (Auto) 0.2 % (0.0-3.0) Basophils (%) (Auto) 0.3 % (0.0-2.0) Sodium Level 137 mEQ/L (135-145) Potassium Level 4.7 mEQ/L (3.4-4.9) Chloride Level 96 mEQ/L (98-107) L Carbon Dioxide Level 29 mEQ/L (20-30) Anion Gap 12 (5-15) Blood Urea Nitrogen 30 mg/dL (7-23) H Creatinine 1.2 mg/dL (0.7-1.2) Estimat Glomerular Filtration Rate mL/min (>60) Glucose Level 130 mg/dL (74-106) H Calcium Level 9.3 mg/dL (8.6-10.2) Total Bilirubin 0.5 mg/dL (0.0-1.2) Aspartate Amino Transf (AST/SGOT) 39 U/L (5-40) Alanine Aminotransferase (ALT/SGPT) 47 U/L (3-41) H Alkaline Phosphatase 63 U/L (40-129) Pro-B-Type Natriuretic Peptide 221 pg/mL (0-450) Total Protein 8.7 g/dL (6.6-8.7) Albumin 3.1 g/dL (3.5-5.2) L Globulin 5.6 g/dL Albumin/Globulin Ratio 0.5 (1.0-2.7) L Microbiology Date/Time Source Procedure Growth Status 12/09/16 02:20 Nasal Nares MRSA Culture - Final NO METHICILLIN RESISTANT STAPH AUREUS... Complete 12/09/16 02:20 Sputum Gram Stain - Final Resulted 12/09/16 02:20 Sputum Sputum Culture Pending Resulted 12/09/16 02:20 Rectum VRE Culture - Final NO VANCOMYCIN RESISTANT ENTEROCOCCUS ... Complete Intake and Output 12/09/16 12/10/16 19:00 07:00 Intake Total 360 ml 435 ml Balance 360 ml 435 ml Intake Free Water 80 ml 30 ml IV Total 55 ml Tube Feeding 225 ml 405 ml # Voids 3 4 # Bowel Movements 2 2 Assessment/Plan Problem List: (1) CAD (coronary artery disease) (2) Dysphagia Assessment & Plan: S/P G-tube (3) SOB (shortness of breath) (4) Pneumonia Assessment & Plan: see ID and pulmonary note. Cont levaquin and cefepime (5) CVA (cerebral vascular accident) Status: not improved LION KNOX Dec 10, 2016 12:18
[2016-12-10 16:00] VITALS: BP 103/67
[2016-12-10] MEDS ORDERED: Sterile Water Irrig 1000ml IRRIG ONE (17:19)
[2016-12-10] MEDS ORDERED: NS 275ml ONE (17:19)
[2016-12-10] MEDS ORDERED: Tubing IV Secondary IV ONE (17:19)
[2016-12-10 19:00] VITALS: BP 105/56
[2016-12-10] MEDS ORDERED: Nitroglycerin Subl 0.4mg tab (Bottle Of 25) SL PRN (23:45)
[2016-12-11] VITALS: BP 94/64
[2016-12-11] MEDS ORDERED: DuoNeb 0.5-3(2.5)mg/3ml neb HHN PRN (01:00)
[2016-12-11] MEDS ORDERED: Promethazine/Codeine 5ml UD GT PRN (02:45)
[2016-12-11 04:00] VITALS: BP 126/67
[2016-12-11] MEDS ORDERED: Mylanta II UD 30ml GT PRN (04:45)
[2016-12-11] MEDS ORDERED: Miralax 17gm pkt GT PRN (06:45)
[2016-12-11 08:15] VITALS: BP 126/72
[2016-12-11 08:22] LABS: BASOPHILS % (AUTO) 0.5 % (0.0-2.0); EOSINOPHILS % (AUTO) 0.8 % (0.0-3.0); LYMPHOCYTES % (AUTO) 13.4 % (20.0-45.0); MEAN CORPUSCULAR HEMOGLOBIN 30.8 PG (27.0-31.0); MEAN CORPUSCULAR HGB CONC 31.4 G/DL (32.0-36.0); MEAN CORPUSCULAR VOLUME 98 FL (80-99); MEAN PLATELET VOLUME 6.3 FL (6.5-10.1); MONOCYTES % (AUTO) 10.7 % (1.0-10.0); NEUTROPHILS % (AUTO) 74.5 % (45.0-75.0); PLATELET COUNT 221 K/UL (150-450); RED BLOOD COUNT 3.57 M/UL (4.70-6.10); RED CELL DISTRIBUTION WIDTH 11.7 % (11.6-14.8); WHITE BLOOD COUNT 6.5 K/UL (4.8-10.8)
[2016-12-11 08:31] LABS: ANION GAP 9 (5-15); CALCIUM 9.6 mg/dL (8.6-10.2); CARBON DIOXIDE 33 mEQ/L (20-30); CHLORIDE 96 mEQ/L (98-107); HEMOLYSIS 3; POTASSIUM 4.6 mEQ/L (3.4-4.9); SODIUM 138 mEQ/L (135-145)
[2016-12-11] MEDS: Levofloxacin 500mg tab PEG SCH (08:58)
[2016-12-11] MEDS: Heparin 5000 units/ml inj SUBQ SCH ×2 (09:01→21:35)
[2016-12-11] MEDS: Cefepime HCl 1 GM in D5W 55 ML IV SCH ×2 (09:03→21:33)
[2016-12-11 12:15] VITALS: BP 157/62
--- NOTE | 2016-12-11 13:20 | Infectious Diseases Prog Note ---
Assessment/Plan Assessment/Plan ASSESSMENT: 86 y/o male with: // Probable partially treated PNA - SCx P.mirabilis, legionella UAg pending - CTA: Negative for evidence of acute pulmonary embolus. Atelectasis and consolidation of much of the posterior right lower lobe. Bilateral basilar atelectasis and/or scarring. Evidence of old granulomatous disease, with a right upper lobe calcified granuloma and extensive calcification of multiple mediastinal lymph nodes - recent admission [facility] // Afebrile without leukocytosis // Elevated LFTs / transaminitis // h/o CVA // h/o CAD - TTE: EF 50%, grade I diastolic dysfunction, mild-mod TR, mod AR, mild pulmonary HTN // Dysphagia SP PEG // NKDA // Full Code PLAN: - Ok to DC on PO levaquin x4 days from ID standpoint - Rx on chart. Will continue levaquin, cefepime d# 3 / 7 while still inpt - f/u cultures, legionella - monitor CBC, temperatures - monitor BMP - monitor CXR d/w RN Subjective Allergies: Coded Allergies: No Known Allergies (Unverified , 12/08/16) Subjective remains afebrile. breathing improved Objective Vital Signs Last 24 Hour Vital Signs Date Time Temp Pulse Resp B/P Pulse Ox O2 Delivery O2 Flow Rate FiO2 12/11/16 12:15 98.3 75 20 157/62 97 Room Air 12/11/16 08:15 97.9 77 20 126/72 95 Nasal Cannula 2.0 12/11/16 07:30 72 18 Nasal Cannula 2.0 12/11/16 04:00 97.7 76 20 126/67 98 Nasal Cannula 3.0 12/11/16 00:00 98.2 75 20 94/64 96 Nasal Cannula 2.0 12/10/16 20:08 86 12/10/16 19:16 75 18 Nasal Cannula 2.0 12/10/16 19:00 97.1 75 22 105/56 Nasal Cannula 3.0 12/10/16 16:00 79 12/10/16 16:00 97.9 77 24 103/67 97 Nasal Cannula 3.0 Height (Feet): 5 Height (Inches): 9.00 Weight (Pounds): 170 General Appearance: no acute distress Respiratory/Chest: decreased breath sounds Cardiovascular: normal rate, regular rhythm Abdomen: normal bowel sounds, soft, non tender, non distended Microbiology Date/Time Source Procedure Growth Status 12/09/16 02:20 Nasal Nares MRSA Culture - Final NO METHICILLIN RESISTANT STAPH AUREUS... Complete 12/09/16 02:20 Sputum Gram Stain - Final Complete 12/09/16 02:20 Sputum Culture - Final Proteus Mirabilis Complete 12/09/16 02:20 Rectum VRE Culture - Final NO VANCOMYCIN RESISTANT ENTEROCOCCUS ... Complete Laboratory Tests Test 12/11/16 08:05 White Blood Count 6.5 K/UL (4.8-10.8) Red Blood Count 3.57 M/UL (4.70-6.10) L Hemoglobin 11.0 G/DL (14.2-18.0) L Hematocrit 35.1 % (42.0-52.0) L Mean Corpuscular Volume 98 FL (80-99) Mean Corpuscular Hemoglobin 30.8 PG (27.0-31.0) Mean Corpuscular Hemoglobin Concent 31.4 G/DL (32.0-36.0) L Red Cell Distribution Width 11.7 % (11.6-14.8) Platelet Count 221 K/UL (150-450) Mean Platelet Volume 6.3 FL (6.5-10.1) L Neutrophils (%) (Auto) 74.5 % (45.0-75.0) Lymphocytes (%) (Auto) 13.4 % (20.0-45.0) L Monocytes (%) (Auto) 10.7 % (1.0-10.0) H Eosinophils (%) (Auto) 0.8 % (0.0-3.0) Basophils (%) (Auto) 0.5 % (0.0-2.0) Sodium Level 138 mEQ/L (135-145) Potassium Level 4.6 mEQ/L (3.4-4.9) Chloride Level 96 mEQ/L (98-107) L Carbon Dioxide Level 33 mEQ/L (20-30) H Anion Gap 9 (5-15) Blood Urea Nitrogen 28 mg/dL (7-23) H Creatinine 1.0 mg/dL (0.7-1.2) Estimat Glomerular Filtration Rate mL/min (>60) Glucose Level 130 mg/dL (74-106) H Calcium Level 9.6 mg/dL (8.6-10.2) Current Medications Medications (Trade) Dose Ordered Sig/Ladarius Route PRN Reason Start Time Stop Time Status Last Admin Dose Admin Acetaminophen (Tylenol) 650 mg Q4H PRN ORAL fever 12/11/16 02:45 01/10/17 02:44 Al Hydroxide/Mg Hydroxide (Mylanta II) 30 ml Q6H PRN GT dyspepsia 12/11/16 04:45 01/10/17 04:44 Albuterol/ Ipratropium (DuoNeb 0.5-3(2.5)mg/3ml) 3 ml Q4H PRN HHN Shortness of Breath 12/11/16 01:00 12/16/16 00:59 Cefepime HCl/ Dextrose (Maxipime/D5W) 55 ml @ 110 mls/hr EVERY 12 HOURS IV 12/11/16 09:00 12/16/16 08:59 12/11/16 09:03 Heparin Sodium (Porcine) (Heparin 5000 units/ml) 5,000 units EVERY 12 HOURS SUBQ 12/11/16 09:00 01/10/17 08:59 12/11/16 09:01 Levofloxacin (Levaquin) 500 mg DAILY PEG 12/11/16 09:00 12/16/16 08:59 12/11/16 08:58 Nitroglycerin (Ntg) 0.4 mg Q5M PRN SL Prn Chest Pain 12/10/16 23:45 01/09/17 23:44 Ondansetron HCl (Zofran) 4 mg Q6H PRN IVP Nausea & Vomiting 12/11/16 04:45 01/10/17 04:44 Polyethylene Glycol (Miralax) 17 gm DAILYPRN PRN GT Constipation 12/11/16 06:45 01/10/17 06:44 12/11/16 09:02 Promethazine HCl/ Codeine (Phenergan with Codeine) 5 ml Q4H PRN GT For Cough 12/11/16 02:45 01/10/17 02:44 Temazepam (Restoril) 15 mg HSPRN PRN GT Insomnia 12/11/16 06:45 12/18/16 06:44 JAZLYN PAYTON Dec 11, 2016 13:20
--- NOTE | 2016-12-11 14:14 | Internal Med Progress Note ---
Subjective Date of Service: Dec 11, 2016 Physician Name John Knox Attending Physician Eros Patterson MD Current Medications Medications (Trade) Dose Ordered Sig/Ladarius Route PRN Reason Start Time Stop Time Status Last Admin Dose Admin Acetaminophen (Tylenol) 650 mg Q4H PRN ORAL fever 12/11/16 02:45 01/10/17 02:44 Al Hydroxide/Mg Hydroxide (Mylanta II) 30 ml Q6H PRN GT dyspepsia 12/11/16 04:45 01/10/17 04:44 Albuterol/ Ipratropium (DuoNeb 0.5-3(2.5)mg/3ml) 3 ml Q4H PRN HHN Shortness of Breath 12/11/16 01:00 12/16/16 00:59 Cefepime HCl/ Dextrose (Maxipime/D5W) 55 ml @ 110 mls/hr EVERY 12 HOURS IV 12/11/16 09:00 12/16/16 08:59 12/11/16 09:03 Heparin Sodium (Porcine) (Heparin 5000 units/ml) 5,000 units EVERY 12 HOURS SUBQ 12/11/16 09:00 01/10/17 08:59 12/11/16 09:01 Levofloxacin (Levaquin) 500 mg DAILY PEG 12/11/16 09:00 12/16/16 08:59 12/11/16 08:58 Nitroglycerin (Ntg) 0.4 mg Q5M PRN SL Prn Chest Pain 12/10/16 23:45 01/09/17 23:44 Ondansetron HCl (Zofran) 4 mg Q6H PRN IVP Nausea & Vomiting 12/11/16 04:45 01/10/17 04:44 Polyethylene Glycol (Miralax) 17 gm DAILYPRN PRN GT Constipation 12/11/16 06:45 01/10/17 06:44 12/11/16 09:02 Promethazine HCl/ Codeine (Phenergan with Codeine) 5 ml Q4H PRN GT For Cough 12/11/16 02:45 01/10/17 02:44 Temazepam (Restoril) 15 mg HSPRN PRN GT Insomnia 12/11/16 06:45 12/18/16 06:44 Allergies: Coded Allergies: No Known Allergies (Unverified , 12/08/16) ROS Limited/Unobtainable: Yes Subjective 86 YO M admitted with shortness of breath; now RLL pneumonia. Cover for Int Med-Dr Patterson. Tolerating nasal canula. Objective Last Vital Signs Date Time Temp Pulse Resp B/P Pulse Ox O2 Delivery O2 Flow Rate FiO2 12/11/16 12:15 98.3 75 20 157/62 97 Room Air 12/11/16 08:15 2.0 12/09/16 07:27 28 Laboratory Tests Test 12/11/16 08:05 White Blood Count 6.5 K/UL (4.8-10.8) Red Blood Count 3.57 M/UL (4.70-6.10) L Hemoglobin 11.0 G/DL (14.2-18.0) L Hematocrit 35.1 % (42.0-52.0) L Mean Corpuscular Volume 98 FL (80-99) Mean Corpuscular Hemoglobin 30.8 PG (27.0-31.0) Mean Corpuscular Hemoglobin Concent 31.4 G/DL (32.0-36.0) L Red Cell Distribution Width 11.7 % (11.6-14.8) Platelet Count 221 K/UL (150-450) Mean Platelet Volume 6.3 FL (6.5-10.1) L Neutrophils (%) (Auto) 74.5 % (45.0-75.0) Lymphocytes (%) (Auto) 13.4 % (20.0-45.0) L Monocytes (%) (Auto) 10.7 % (1.0-10.0) H Eosinophils (%) (Auto) 0.8 % (0.0-3.0) Basophils (%) (Auto) 0.5 % (0.0-2.0) Sodium Level 138 mEQ/L (135-145) Potassium Level 4.6 mEQ/L (3.4-4.9) Chloride Level 96 mEQ/L (98-107) L Carbon Dioxide Level 33 mEQ/L (20-30) H Anion Gap 9 (5-15) Blood Urea Nitrogen 28 mg/dL (7-23) H Creatinine 1.0 mg/dL (0.7-1.2) Estimat Glomerular Filtration Rate mL/min (>60) Glucose Level 130 mg/dL (74-106) H Calcium Level 9.6 mg/dL (8.6-10.2) Microbiology Date/Time Source Procedure Growth Status 12/09/16 02:20 Nasal Nares MRSA Culture - Final NO METHICILLIN RESISTANT STAPH AUREUS... Complete 12/09/16 02:20 Sputum Gram Stain - Final Complete 12/09/16 02:20 Sputum Culture - Final Proteus Mirabilis Complete 12/09/16 02:20 Rectum VRE Culture - Final NO VANCOMYCIN RESISTANT ENTEROCOCCUS ... Complete Intake and Output 12/10/16 12/11/16 19:00 07:00 Intake Total 830 ml 640 ml Output Total 100 ml Balance 730 ml 640 ml Intake Oral 220 ml Free Water 150 ml 100 ml IV Total 55 ml Tube Feeding 405 ml 540 ml Output Urine Total 100 ml # Voids 3 7 # Bowel Movements 1 Objective General Appearance: WD/WN, mild distress EENT: PERRL/EOMI, normal ENT inspection Neck: non-tender, normal alignment, supple Cardiovascular: normal peripheral pulses, normal rate, regular rhythm, no gallop/murmur, no JVD Respiratory/Chest: respiratory distress, crackles/rales, rhonchi - bilaterally , expiratory wheezing Abdomen: normal bowel sounds, non tender, soft, no organomegaly, no mass Extremities: normal range of motion 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 Cont levaquin and cefepime (5) CVA (cerebral vascular accident) Status: progressing Assessment/Plan Discussed with at bedside. JOHN KNOX Dec 11, 2016 14:14
--- NOTE | 2016-12-11 14:19 | Pulmonology Progress Note ---
Assessment/Plan Assessment/Plan ASSESSMENT PNA dysphagia, G tube hx of CVA cachexia elevated transaminitis mild pulmonary HTN hx of CAD PLAN OF CARE O2 HHN prn abx sputum cx + Proteus ID follows initial CXR no acute disease CTA no acute PE ( D dimer was elevated) fup with CXR in am GT feeding, monitor tolerance strict aspiration precautions, antitussive prn Venous Duplex BLE ECHO with EF 50% and RVSP of 39 c/w mild pulmonary HTN Bowel regimen LFT trending down dc plan soon as per PMD case discussed and evaluated by supervising physician Subjective Allergies: Coded Allergies: No Known Allergies (Unverified , 12/08/16) Subjective afebrile, leukocytosis resolved on RA , sat stable, no signs of respiratory distress denies chest pain, SOB Objective Last 24 Hour Vital Signs Date Time Temp Pulse Resp B/P Pulse Ox O2 Delivery O2 Flow Rate FiO2 12/11/16 12:15 98.3 75 20 157/62 97 Room Air 12/11/16 08:15 97.9 77 20 126/72 95 Nasal Cannula 2.0 12/11/16 07:30 72 18 Nasal Cannula 2.0 12/11/16 04:00 97.7 76 20 126/67 98 Nasal Cannula 3.0 12/11/16 00:00 98.2 75 20 94/64 96 Nasal Cannula 2.0 12/10/16 20:08 86 12/10/16 19:16 75 18 Nasal Cannula 2.0 12/10/16 19:00 97.1 75 22 105/56 Nasal Cannula 3.0 12/10/16 16:00 79 12/10/16 16:00 97.9 77 24 103/67 97 Nasal Cannula 3.0 Intake and Output 12/10/16 12/11/16 19:00 07:00 Intake Total 830 ml 640 ml Output Total 100 ml Balance 730 ml 640 ml Intake Oral 220 ml Free Water 150 ml 100 ml IV Total 55 ml Tube Feeding 405 ml 540 ml Output Urine Total 100 ml # Voids 3 7 # Bowel Movements 1 Objective General Appearance: no acute distress, awake, alert, responsive, confused, elderly AA male HEENT: normocephalic, atraumatic, anicteric, mucous membranes moist Respiratory/Chest: lungs clear - with moderate air entry Cardiovascular: normal peripheral pulses, normal rate, regular rhythm no JVD Abdomen: normal bowel sounds, soft, non tender, non distended Genitourinary: normal external genitalia Extremities: no edema, pedal pulses normal Neurologic/Psychiatric: alert, responsive Musculoskeletal: atrophy - BLE Microbiology Date/Time Source Procedure Growth Status 12/09/16 02:20 Nasal Nares MRSA Culture - Final NO METHICILLIN RESISTANT STAPH AUREUS... Complete 12/09/16 02:20 Sputum Gram Stain - Final Complete 12/09/16 02:20 Sputum Culture - Final Proteus Mirabilis Complete 12/09/16 02:20 Rectum VRE Culture - Final NO VANCOMYCIN RESISTANT ENTEROCOCCUS ... Complete Laboratory Tests 12/11/16 08:05: White Blood Count 6.5, Red Blood Count 3.57L, Hemoglobin 11.0L, Hematocrit 35.1L , Mean Corpuscular Volume 98, Mean Corpuscular Hemoglobin 30.8, Mean Corpuscular Hemoglobin Concent 31.4L, Red Cell Distribution Width 11.7, Platelet Count 221, Mean Platelet Volume 6.3L, Neutrophils (%) (Auto) 74.5, Lymphocytes (%) (Auto) 13.4L, Monocytes (%) (Auto) 10.7H, Eosinophils (%) (Auto ) 0.8, Basophils (%) (Auto) 0.5, Sodium Level 138, Potassium Level 4.6, Chloride Level 96L, Carbon Dioxide Level 33H, Anion Gap 9, Blood Urea Nitrogen 28H, Creatinine 1.0, Estimat Glomerular Filtration Rate , Glucose Level 130H, Calcium Level 9.6 Current Medications Medications (Trade) Dose Ordered Sig/Ladarius Route PRN Reason Start Time Stop Time Status Last Admin Dose Admin Acetaminophen (Tylenol) 650 mg Q4H PRN ORAL fever 12/11/16 02:45 01/10/17 02:44 Al Hydroxide/Mg Hydroxide (Mylanta II) 30 ml Q6H PRN GT dyspepsia 12/11/16 04:45 01/10/17 04:44 Albuterol/ Ipratropium (DuoNeb 0.5-3(2.5)mg/3ml) 3 ml Q4H PRN HHN Shortness of Breath 12/11/16 01:00 12/16/16 00:59 Cefepime HCl/ Dextrose (Maxipime/D5W) 55 ml @ 110 mls/hr EVERY 12 HOURS IV 12/11/16 09:00 12/16/16 08:59 12/11/16 09:03 Heparin Sodium (Porcine) (Heparin 5000 units/ml) 5,000 units EVERY 12 HOURS SUBQ 12/11/16 09:00 01/10/17 08:59 12/11/16 09:01 Levofloxacin (Levaquin) 500 mg DAILY PEG 12/11/16 09:00 12/16/16 08:59 12/11/16 08:58 Nitroglycerin (Ntg) 0.4 mg Q5M PRN SL Prn Chest Pain 12/10/16 23:45 01/09/17 23:44 Ondansetron HCl (Zofran) 4 mg Q6H PRN IVP Nausea & Vomiting 12/11/16 04:45 01/10/17 04:44 Polyethylene Glycol (Miralax) 17 gm DAILYPRN PRN GT Constipation 12/11/16 06:45 01/10/17 06:44 12/11/16 09:02 Promethazine HCl/ Codeine (Phenergan with Codeine) 5 ml Q4H PRN GT For Cough 12/11/16 02:45 01/10/17 02:44 Temazepam (Restoril) 15 mg HSPRN PRN GT Insomnia 12/11/16 06:45 12/18/16 06:44 Lakhwinder ([facility])Lora NP Dec 11, 2016 14:19
[2016-12-11 16:00] VITALS: BP 138/77
[2016-12-11 19:00] VITALS: BP 127/61
[2016-12-12] VITALS: BP 139/67
[2016-12-12 04:00] VITALS: BP 120/77
[2016-12-12 07:49] LABS: BASOPHILS % (AUTO) 0.8 % (0.0-2.0); EOSINOPHILS % (AUTO) 1.2 % (0.0-3.0); LYMPHOCYTES % (AUTO) 12.4 % (20.0-45.0); MEAN CORPUSCULAR HEMOGLOBIN 30.6 PG (27.0-31.0); MEAN CORPUSCULAR HGB CONC 31.4 G/DL (32.0-36.0); MEAN CORPUSCULAR VOLUME 97 FL (80-99); MEAN PLATELET VOLUME 7.1 FL (6.5-10.1); MONOCYTES % (AUTO) 10.5 % (1.0-10.0); NEUTROPHILS % (AUTO) 75.1 % (45.0-75.0); PLATELET COUNT 236 K/UL (150-450); RED CELL DISTRIBUTION WIDTH 11.7 % (11.6-14.8); WHITE BLOOD COUNT 6.1 K/UL (4.8-10.8)
[2016-12-12 07:52] LABS: ANION GAP 9 (5-15); CALCIUM 9.7 mg/dL (8.6-10.2); CARBON DIOXIDE 33 mEQ/L (20-30); CHLORIDE 96 mEQ/L (98-107); CREATININE 0.9 mg/dL (0.7-1.2); HEMOLYSIS 5; POTASSIUM 4.3 mEQ/L (3.4-4.9); SODIUM 138 mEQ/L (135-145)
[2016-12-12 08:23] VITALS: BP 121/68
[2016-12-12] MEDS: Cefepime HCl 1 GM in D5W 55 ML IV SCH (08:37)
[2016-12-12] MEDS: Levofloxacin 500mg tab PEG SCH (08:37)
[2016-12-12] MEDS: Heparin 5000 units/ml inj SUBQ SCH ×2 (08:39→21:24)
--- NOTE | 2016-12-12 11:33 | Internal Med Progress Note ---
Subjective Date of Service: Dec 12, 2016 Physician Name Lion Knox Attending Physician Eros Patterson MD Current Medications Medications (Trade) Dose Ordered Sig/Ladarius Route PRN Reason Start Time Stop Time Status Last Admin Dose Admin Acetaminophen (Tylenol) 650 mg Q4H PRN ORAL fever 12/11/16 02:45 01/10/17 02:44 Al Hydroxide/Mg Hydroxide (Mylanta II) 30 ml Q6H PRN GT dyspepsia 12/11/16 04:45 01/10/17 04:44 Albuterol/ Ipratropium (DuoNeb 0.5-3(2.5)mg/3ml) 3 ml Q4H PRN HHN Shortness of Breath 12/11/16 01:00 12/16/16 00:59 Cefepime HCl/ Dextrose (Maxipime/D5W) 55 ml @ 110 mls/hr EVERY 12 HOURS IV 12/11/16 09:00 12/16/16 08:59 12/12/16 08:37 Heparin Sodium (Porcine) (Heparin 5000 units/ml) 5,000 units EVERY 12 HOURS SUBQ 12/11/16 09:00 01/10/17 08:59 12/12/16 08:39 Levofloxacin (Levaquin) 500 mg DAILY PEG 12/11/16 09:00 12/16/16 08:59 12/12/16 08:37 Nitroglycerin (Ntg) 0.4 mg Q5M PRN SL Prn Chest Pain 12/10/16 23:45 01/09/17 23:44 Ondansetron HCl (Zofran) 4 mg Q6H PRN IVP Nausea & Vomiting 12/11/16 04:45 01/10/17 04:44 12/12/16 06:49 Polyethylene Glycol (Miralax) 17 gm DAILYPRN PRN GT Constipation 12/11/16 06:45 01/10/17 06:44 12/11/16 09:02 Promethazine HCl/ Codeine (Phenergan with Codeine) 5 ml Q4H PRN GT For Cough 12/11/16 02:45 01/10/17 02:44 Temazepam (Restoril) 15 mg HSPRN PRN GT Insomnia 12/11/16 06:45 12/18/16 06:44 Allergies: Coded Allergies: No Known Allergies (Unverified , 2/16/17) ROS Limited/Unobtainable: No Constitutional: Reports: no symptoms HEENT: Reports: no symptoms Respiratory: Reports: shortness of breath Gastrointestinal/Abdominal: Reports: no symptoms Genitourinary: Reports: no symptoms Neurologic/Psychiatric: Reports: no symptoms Subjective 86 YO M admitted with shortness of breath; now RLL pneumonia. Cover for Int Michael-Dr Patterson. Tolerating nasal canula. Objective Last Vital Signs Date Time Temp Pulse Resp B/P Pulse Ox O2 Delivery O2 Flow Rate FiO2 12/12/16 08:23 97.5 78 21 121/68 95 Nasal Cannula 2.0 12/12/16 07:11 32 Laboratory Tests Test 12/12/16 06:00 White Blood Count 6.1 K/UL (4.8-10.8) Red Blood Count 3.80 M/UL (4.70-6.10) L Hemoglobin 11.6 G/DL (14.2-18.0) L Hematocrit 37.1 % (42.0-52.0) L Mean Corpuscular Volume 97 FL (80-99) Mean Corpuscular Hemoglobin 30.6 PG (27.0-31.0) Mean Corpuscular Hemoglobin Concent 31.4 G/DL (32.0-36.0) L Red Cell Distribution Width 11.7 % (11.6-14.8) Platelet Count 236 K/UL (150-450) Mean Platelet Volume 7.1 FL (6.5-10.1) Neutrophils (%) (Auto) 75.1 % (45.0-75.0) H Lymphocytes (%) (Auto) 12.4 % (20.0-45.0) L Monocytes (%) (Auto) 10.5 % (1.0-10.0) H Eosinophils (%) (Auto) 1.2 % (0.0-3.0) Basophils (%) (Auto) 0.8 % (0.0-2.0) Sodium Level 138 mEQ/L (135-145) Potassium Level 4.3 mEQ/L (3.4-4.9) Chloride Level 96 mEQ/L (98-107) L Carbon Dioxide Level 33 mEQ/L (20-30) H Anion Gap 9 (5-15) Blood Urea Nitrogen 23 mg/dL (7-23) Creatinine 0.9 mg/dL (0.7-1.2) Estimat Glomerular Filtration Rate mL/min (>60) Glucose Level 128 mg/dL (74-106) H Calcium Level 9.7 mg/dL (8.6-10.2) Intake and Output 12/11/16 12/12/16 19:00 07:00 Intake Total 100 ml 810 ml Balance 100 ml 810 ml Free Water 50 ml 100 ml IV Total 110 ml Tube Feeding 50 ml 600 ml # Voids 2 4 # Bowel Movements 3 Objective General Appearance: WD/WN, mild distress EENT: PERRL/EOMI, normal ENT inspection Neck: non-tender, normal alignment, supple Cardiovascular: normal peripheral pulses, normal rate, regular rhythm, no gallop/murmur, no JVD Respiratory/Chest: respiratory distress, crackles/rales, rhonchi - bilaterally , expiratory wheezing Abdomen: normal bowel sounds, non tender, soft, no organomegaly, no mass Extremities: normal range of motion 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 Cont levaquin and cefepime (5) CVA (cerebral vascular accident) Assessment/Plan Discussed with at bedside. LION KNOX Dec 12, 2016 11:33
--- NOTE | 2016-12-12 11:47 | Diagnostic Imaging Report ---
Indication: Dyspnea Comparison: 12/10/16 A single view chest radiograph was obtained. Findings: Cardiomegaly is present. No obvious infiltrate identified. Lung volumes are low. Calcifications in the mediastinum and right hilum again noted. Bones are osteopenic. Impression: No acute disease identified
[2016-12-12 11:55] VITALS: BP 141/90
--- NOTE | 2016-12-12 15:27 | Infectious Diseases Prog Note ---
Assessment/Plan Assessment/Plan ASSESSMENT: 86 y/o male with: // Probable partially treated PNA - SCx P.mirabilis, legionella UAg(-) - CTA: Negative for evidence of acute pulmonary embolus. Atelectasis and consolidation of much of the posterior right lower lobe. Bilateral basilar atelectasis and/or scarring. Evidence of old granulomatous disease, with a right upper lobe calcified granuloma and extensive calcification of multiple mediastinal lymph nodes - recent admission [facility] // Afebrile without leukocytosis // Elevated LFTs / transaminitis // h/o CVA // h/o CAD - TTE: EF 50%, grade I diastolic dysfunction, mild-mod TR, mod AR, mild pulmonary HTN // Dysphagia SP PEG // NKDA // Full Code PLAN: - Ok to DC on PO levaquin x3 days from ID standpoint - Rx on chart. Will continue levaquin, cefepime d# 4 / 7 while still inpt - monitor CBC, temperatures, re-culture if acute change - monitor BMP - monitor CXR Subjective Allergies: Coded Allergies: No Known Allergies (Unverified , 12/08/16) Subjective remains afebrile. denies SOB Objective Vital Signs Last 24 Hour Vital Signs Date Time Temp Pulse Resp B/P Pulse Ox O2 Delivery O2 Flow Rate FiO2 12/12/16 11:55 97.9 87 21 141/90 100 Nasal Cannula 2.0 12/12/16 08:23 97.5 78 21 121/68 95 Nasal Cannula 2.0 12/12/16 07:11 80 24 Nasal Cannula 3.0 32 12/12/16 04:00 97.9 76 20 120/77 94 Room Air 12/12/16 00:00 98.4 76 16 139/67 94 Room Air 12/11/16 19:25 79 18 Nasal Cannula 2.0 12/11/16 19:00 97.3 74 20 127/61 94 Nasal Cannula 3.0 12/11/16 16:00 96.8 78 20 138/77 97 Nasal Cannula 3.0 Height (Feet): 5 Height (Inches): 9.00 Weight (Pounds): 170 General Appearance: no acute distress Respiratory/Chest: no respiratory distress Cardiovascular: normal rate, regular rhythm Abdomen: normal bowel sounds, soft, non tender, non distended Laboratory Tests Test 12/12/16 06:00 White Blood Count 6.1 K/UL (4.8-10.8) Red Blood Count 3.80 M/UL (4.70-6.10) L Hemoglobin 11.6 G/DL (14.2-18.0) L Hematocrit 37.1 % (42.0-52.0) L Mean Corpuscular Volume 97 FL (80-99) Mean Corpuscular Hemoglobin 30.6 PG (27.0-31.0) Mean Corpuscular Hemoglobin Concent 31.4 G/DL (32.0-36.0) L Red Cell Distribution Width 11.7 % (11.6-14.8) Platelet Count 236 K/UL (150-450) Mean Platelet Volume 7.1 FL (6.5-10.1) Neutrophils (%) (Auto) 75.1 % (45.0-75.0) H Lymphocytes (%) (Auto) 12.4 % (20.0-45.0) L Monocytes (%) (Auto) 10.5 % (1.0-10.0) H Eosinophils (%) (Auto) 1.2 % (0.0-3.0) Basophils (%) (Auto) 0.8 % (0.0-2.0) Sodium Level 138 mEQ/L (135-145) Potassium Level 4.3 mEQ/L (3.4-4.9) Chloride Level 96 mEQ/L (98-107) L Carbon Dioxide Level 33 mEQ/L (20-30) H Anion Gap 9 (5-15) Blood Urea Nitrogen 23 mg/dL (7-23) Creatinine 0.9 mg/dL (0.7-1.2) Estimat Glomerular Filtration Rate mL/min (>60) Glucose Level 128 mg/dL (74-106) H Calcium Level 9.7 mg/dL (8.6-10.2) Current Medications Medications (Trade) Dose Ordered Sig/Ladarius Route PRN Reason Start Time Stop Time Status Last Admin Dose Admin Acetaminophen (Tylenol) 650 mg Q4H PRN ORAL fever 12/11/16 02:45 01/10/17 02:44 Al Hydroxide/Mg Hydroxide (Mylanta II) 30 ml Q6H PRN GT dyspepsia 12/11/16 04:45 01/10/17 04:44 Albuterol/ Ipratropium (DuoNeb 0.5-3(2.5)mg/3ml) 3 ml Q4H PRN HHN Shortness of Breath 12/11/16 01:00 12/16/16 00:59 Cefepime HCl/ Dextrose (Maxipime/D5W) 55 ml @ 110 mls/hr EVERY 12 HOURS IV 12/11/16 09:00 12/16/16 08:59 12/12/16 08:37 Heparin Sodium (Porcine) (Heparin 5000 units/ml) 5,000 units EVERY 12 HOURS SUBQ 12/11/16 09:00 01/10/17 08:59 12/12/16 08:39 Levofloxacin (Levaquin) 500 mg DAILY PEG 12/11/16 09:00 12/16/16 08:59 12/12/16 08:37 Nitroglycerin (Ntg) 0.4 mg Q5M PRN SL Prn Chest Pain 12/10/16 23:45 01/09/17 23:44 Ondansetron HCl (Zofran) 4 mg Q6H PRN IVP Nausea & Vomiting 12/11/16 04:45 01/10/17 04:44 12/12/16 06:49 Polyethylene Glycol (Miralax) 17 gm DAILYPRN PRN GT Constipation 12/11/16 06:45 01/10/17 06:44 12/11/16 09:02 Promethazine HCl/ Codeine (Phenergan with Codeine) 5 ml Q4H PRN GT For Cough 12/11/16 02:45 01/10/17 02:44 Temazepam (Restoril) 15 mg HSPRN PRN GT Insomnia 12/11/16 06:45 12/18/16 06:44 JAZLYN PAYTON Dec 12, 2016 15:27
[2016-12-12 16:00] VITALS: BP 124/70
[2016-12-12] MEDS ORDERED: NS 550ML IV ONE (17:04)
--- NOTE | 2016-12-12 17:27 | Pulmonology Progress Note ---
Assessment/Plan Problems: (1) Pneumonia (2) Cachectic (3) CVA (cerebral vascular accident) (4) Feeding by G-tube Assessment/Plan improving tolerating feeding dyspnea has resolved titrate fio2 to sat of 92% dc planning in progress. Subjective ROS Limited/Unobtainable: No Interval Events: awake, comfortable Constitutional: Reports: no symptoms Allergies: Coded Allergies: No Known Allergies (Unverified , 12/08/16) All Systems: reviewed and negative except above Objective Last 24 Hour Vital Signs Date Time Temp Pulse Resp B/P Pulse Ox O2 Delivery O2 Flow Rate FiO2 12/12/16 16:00 97.7 77 18 124/70 98 Nasal Cannula 2.0 12/12/16 11:55 97.9 87 21 141/90 100 Nasal Cannula 2.0 12/12/16 08:23 97.5 78 21 121/68 95 Nasal Cannula 2.0 12/12/16 07:11 80 24 Nasal Cannula 3.0 32 12/12/16 04:00 97.9 76 20 120/77 94 Room Air 12/12/16 00:00 98.4 76 16 139/67 94 Room Air 12/11/16 19:25 79 18 Nasal Cannula 2.0 12/11/16 19:00 97.3 74 20 127/61 94 Nasal Cannula 3.0 Intake and Output 12/11/16 12/12/16 19:00 07:00 Intake Total 100 ml 810 ml Balance 100 ml 810 ml Free Water 50 ml 100 ml IV Total 110 ml Tube Feeding 50 ml 600 ml # Voids 2 4 # Bowel Movements 3 General Appearance: WD/WN HEENT: normocephalic, atraumatic Respiratory/Chest: chest wall non-tender, lungs clear Cardiovascular: normal peripheral pulses, regular rhythm Genitourinary: normal external genitalia 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 normal, abnormal gait Lymphatic: no neck adenopathy Laboratory Tests 12/12/16 06:00: White Blood Count 6.1, Red Blood Count 3.80L, Hemoglobin 11.6L, Hematocrit 37.1L , Mean Corpuscular Volume 97, Mean Corpuscular Hemoglobin 30.6, Mean Corpuscular Hemoglobin Concent 31.4L, Red Cell Distribution Width 11.7, Platelet Count 236, Mean Platelet Volume 7.1, Neutrophils (%) (Auto) 75.1H, Lymphocytes (%) (Auto) 12.4L, Monocytes (%) (Auto) 10.5H, Eosinophils (%) (Auto ) 1.2, Basophils (%) (Auto) 0.8, Sodium Level 138, Potassium Level 4.3, Chloride Level 96L, Carbon Dioxide Level 33H, Anion Gap 9, Blood Urea Nitrogen 23, Creatinine 0.9, Estimat Glomerular Filtration Rate , Glucose Level 128H, Calcium Level 9.7 Current Medications Medications (Trade) Dose Ordered Sig/Ladarius Route PRN Reason Start Time Stop Time Status Last Admin Dose Admin Acetaminophen (Tylenol) 650 mg Q4H PRN ORAL fever 12/11/16 02:45 01/10/17 02:44 Al Hydroxide/Mg Hydroxide (Mylanta II) 30 ml Q6H PRN GT dyspepsia 12/11/16 04:45 01/10/17 04:44 Albuterol/ Ipratropium (DuoNeb 0.5-3(2.5)mg/3ml) 3 ml Q4H PRN HHN Shortness of Breath 12/11/16 01:00 12/16/16 00:59 Heparin Sodium (Porcine) (Heparin 5000 units/ml) 5,000 units EVERY 12 HOURS SUBQ 12/11/16 09:00 01/10/17 08:59 12/12/16 08:39 Levofloxacin (Levaquin) 500 mg DAILY PEG 12/11/16 09:00 12/16/16 08:59 12/12/16 08:37 Nitroglycerin (Ntg) 0.4 mg Q5M PRN SL Prn Chest Pain 12/10/16 23:45 01/09/17 23:44 Ondansetron HCl (Zofran) 4 mg Q6H PRN IVP Nausea & Vomiting 12/11/16 04:45 01/10/17 04:44 12/12/16 06:49 Polyethylene Glycol (Miralax) 17 gm DAILYPRN PRN GT Constipation 12/11/16 06:45 01/10/17 06:44 12/11/16 09:02 Promethazine HCl/ Codeine (Phenergan with Codeine) 5 ml Q4H PRN GT For Cough 12/11/16 02:45 01/10/17 02:44 Temazepam (Restoril) 15 mg HSPRN PRN GT Insomnia 12/11/16 06:45 12/18/16 06:44 CHARI WARD Dec 12, 2016 17:26
[2016-12-12 20:00] VITALS: BP 136/74
[2016-12-13] VITALS (7 sets, daily range): BP systolic 116–139; BP diastolic 59–87
[2016-12-13 06:56] LABS: BASOPHILS % (AUTO) 2.4 % (0.0-2.0); EOSINOPHILS % (AUTO) 1.6 % (0.0-3.0); LYMPHOCYTES % (AUTO) 18.1 % (20.0-45.0); MEAN CORPUSCULAR HGB CONC 31.5 G/DL (32.0-36.0); MEAN CORPUSCULAR VOLUME 98 FL (80-99); MEAN PLATELET VOLUME 6.7 FL (6.5-10.1); NEUTROPHILS % (AUTO) 65.9 % (45.0-75.0); PLATELET COUNT 233 K/UL (150-450); RED BLOOD COUNT 3.88 M/UL (4.70-6.10); RED CELL DISTRIBUTION WIDTH 11.9 % (11.6-14.8)
[2016-12-13 07:13] LABS: ANION GAP 7 (5-15); CALCIUM 9.5 mg/dL (8.6-10.2); CARBON DIOXIDE 34 mEQ/L (20-30); CHLORIDE 96 mEQ/L (98-107); CREATININE 0.8 mg/dL (0.7-1.2); HEMOLYSIS 4; SODIUM 137 mEQ/L (135-145)
[2016-12-13] MEDS: Levofloxacin 500mg tab PEG SCH (08:17)
[2016-12-13] MEDS: Heparin 5000 units/ml inj SUBQ SCH ×2 (08:17→21:42)
--- NOTE | 2016-12-13 14:08 | Diagnostic Imaging Report ---
Indication: Dyspnea Comparison: 12/08/16 A single view chest radiograph was obtained. Findings: No infiltrate seen. Lung volumes are low. Cardiac size is increased but stable. Bones are osteopenic. Calcified granulomata are again noted. Impression: Stable appearance
--- NOTE | 2016-12-13 14:45 | Infectious Diseases Prog Note ---
Assessment/Plan Assessment/Plan ASSESSMENT: 86 y/o male with: // Probable partially treated PNA - SCx P.mirabilis, legionella UAg(-) - CTA: Negative for evidence of acute pulmonary embolus. Atelectasis and consolidation of much of the posterior right lower lobe. Bilateral basilar atelectasis and/or scarring. Evidence of old granulomatous disease, with a right upper lobe calcified granuloma and extensive calcification of multiple mediastinal lymph nodes - recent admission [facility] // Afebrile without leukocytosis // Elevated LFTs / transaminitis // h/o CVA // h/o CAD - TTE: EF 50%, grade I diastolic dysfunction, mild-mod TR, mod AR, mild pulmonary HTN // Dysphagia SP PEG // NKDA // Full Code PLAN: - Ok to DC on PO levaquin x2 more days from ID standpoint - Rx on chart. ( ABX d # 5 / 7 ) ( 12/12 SP cefepime d# 4 ) - monitor CBC, temperatures, re-culture if acute change - monitor BMP - monitor CXR Subjective Allergies: Coded Allergies: No Known Allergies (Unverified , 12/08/16) Subjective remains afebrile. denies SOB DC planning ongoing Objective Vital Signs Last 24 Hour Vital Signs Date Time Temp Pulse Resp B/P Pulse Ox O2 Delivery O2 Flow Rate FiO2 12/13/16 11:27 98.2 81 21 126/66 95 Room Air 12/13/16 07:42 97.5 73 21 116/61 100 Nasal Cannula 2.0 12/13/16 06:49 73 20 Nasal Cannula 2.0 12/13/16 04:00 97.5 67 20 129/59 100 Nasal Cannula 2.0 12/13/16 00:00 97.7 77 18 124/70 98 Nasal Cannula 2.0 12/12/16 20:00 97.7 78 18 136/74 95 Room Air 12/12/16 19:00 78 21 Nasal Cannula 2.0 12/12/16 16:00 97.7 77 18 124/70 98 Nasal Cannula 2.0 Height (Feet): 5 Height (Inches): 9.00 Weight (Pounds): 170 General Appearance: no acute distress Respiratory/Chest: no respiratory distress Cardiovascular: normal rate, regular rhythm Abdomen: normal bowel sounds, soft, non tender, non distended Laboratory Tests Test 12/13/16 06:05 White Blood Count 5.0 K/UL (4.8-10.8) Red Blood Count 3.88 M/UL (4.70-6.10) L Hemoglobin 12.1 G/DL (14.2-18.0) L Hematocrit 38.2 % (42.0-52.0) L Mean Corpuscular Volume 98 FL (80-99) Mean Corpuscular Hemoglobin 31.0 PG (27.0-31.0) Mean Corpuscular Hemoglobin Concent 31.5 G/DL (32.0-36.0) L Red Cell Distribution Width 11.9 % (11.6-14.8) Platelet Count 233 K/UL (150-450) Mean Platelet Volume 6.7 FL (6.5-10.1) Neutrophils (%) (Auto) 65.9 % (45.0-75.0) Lymphocytes (%) (Auto) 18.1 % (20.0-45.0) L Monocytes (%) (Auto) 12.0 % (1.0-10.0) H Eosinophils (%) (Auto) 1.6 % (0.0-3.0) Basophils (%) (Auto) 2.4 % (0.0-2.0) H Sodium Level 137 mEQ/L (135-145) Potassium Level 5.0 mEQ/L (3.4-4.9) H Chloride Level 96 mEQ/L (98-107) L Carbon Dioxide Level 34 mEQ/L (20-30) H Anion Gap 7 (5-15) Blood Urea Nitrogen 23 mg/dL (7-23) Creatinine 0.8 mg/dL (0.7-1.2) Estimat Glomerular Filtration Rate mL/min (>60) Glucose Level 134 mg/dL (74-106) H Calcium Level 9.5 mg/dL (8.6-10.2) Current Medications Medications (Trade) Dose Ordered Sig/Ladarius Route PRN Reason Start Time Stop Time Status Last Admin Dose Admin Acetaminophen (Tylenol) 650 mg Q4H PRN ORAL fever 12/11/16 02:45 01/10/17 02:44 Al Hydroxide/Mg Hydroxide (Mylanta II) 30 ml Q6H PRN GT dyspepsia 12/11/16 04:45 01/10/17 04:44 Albuterol/ Ipratropium (DuoNeb 0.5-3(2.5)mg/3ml) 3 ml Q4H PRN HHN Shortness of Breath 12/11/16 01:00 12/16/16 00:59 Heparin Sodium (Porcine) (Heparin 5000 units/ml) 5,000 units EVERY 12 HOURS SUBQ 12/11/16 09:00 01/10/17 08:59 12/13/16 08:17 Levofloxacin (Levaquin) 500 mg DAILY PEG 12/11/16 09:00 12/16/16 08:59 12/13/16 08:17 Nitroglycerin (Ntg) 0.4 mg Q5M PRN SL Prn Chest Pain 12/10/16 23:45 01/09/17 23:44 Ondansetron HCl (Zofran) 4 mg Q6H PRN IVP Nausea & Vomiting 12/11/16 04:45 01/10/17 04:44 12/12/16 06:49 Polyethylene Glycol (Miralax) 17 gm DAILYPRN PRN GT Constipation 12/11/16 06:45 01/10/17 06:44 12/11/16 09:02 Promethazine HCl/ Codeine (Phenergan with Codeine) 5 ml Q4H PRN GT For Cough 12/11/16 02:45 01/10/17 02:44 Temazepam (Restoril) 15 mg HSPRN PRN GT Insomnia 12/11/16 06:45 12/18/16 06:44 JAZLYN PAYTON Dec 13, 2016 14:45
--- NOTE | 2016-12-13 17:22 | Internal Med Progress Note ---
Subjective Date of Service: Dec 13, 2016 Physician Name John Knox Attending Physician Eros Patterson MD Current Medications Medications (Trade) Dose Ordered Sig/Ladarius Route PRN Reason Start Time Stop Time Status Last Admin Dose Admin Acetaminophen (Tylenol) 650 mg Q4H PRN ORAL fever 12/11/16 02:45 01/10/17 02:44 Al Hydroxide/Mg Hydroxide (Mylanta II) 30 ml Q6H PRN GT dyspepsia 12/11/16 04:45 01/10/17 04:44 Albuterol/ Ipratropium (DuoNeb 0.5-3(2.5)mg/3ml) 3 ml Q4H PRN HHN Shortness of Breath 12/11/16 01:00 12/16/16 00:59 Heparin Sodium (Porcine) (Heparin 5000 units/ml) 5,000 units EVERY 12 HOURS SUBQ 12/11/16 09:00 01/10/17 08:59 12/13/16 08:17 Levofloxacin (Levaquin) 500 mg DAILY PEG 12/11/16 09:00 12/16/16 08:59 12/13/16 08:17 Nitroglycerin (Ntg) 0.4 mg Q5M PRN SL Prn Chest Pain 12/10/16 23:45 01/09/17 23:44 Ondansetron HCl (Zofran) 4 mg Q6H PRN IVP Nausea & Vomiting 12/11/16 04:45 01/10/17 04:44 12/12/16 06:49 Polyethylene Glycol (Miralax) 17 gm DAILYPRN PRN GT Constipation 12/11/16 06:45 01/10/17 06:44 12/11/16 09:02 Promethazine HCl/ Codeine (Phenergan with Codeine) 5 ml Q4H PRN GT For Cough 12/11/16 02:45 01/10/17 02:44 Temazepam (Restoril) 15 mg HSPRN PRN GT Insomnia 12/11/16 06:45 12/18/16 06:44 Allergies: Coded Allergies: No Known Allergies (Unverified , 12/08/16) ROS Limited/Unobtainable: Yes Subjective 86 YO M admitted with shortness of breath; now RLL pneumonia. Cover for Int Med-Dr Patterson. Tolerating nasal canula. Objective Last Vital Signs Date Time Temp Pulse Resp B/P Pulse Ox O2 Delivery O2 Flow Rate FiO2 12/13/16 15:27 98.6 84 21 139/87 94 Room Air 12/13/16 07:42 2.0 12/12/16 07:11 32 Laboratory Tests Test 12/13/16 06:05 White Blood Count 5.0 K/UL (4.8-10.8) Red Blood Count 3.88 M/UL (4.70-6.10) L Hemoglobin 12.1 G/DL (14.2-18.0) L Hematocrit 38.2 % (42.0-52.0) L Mean Corpuscular Volume 98 FL (80-99) Mean Corpuscular Hemoglobin 31.0 PG (27.0-31.0) Mean Corpuscular Hemoglobin Concent 31.5 G/DL (32.0-36.0) L Red Cell Distribution Width 11.9 % (11.6-14.8) Platelet Count 233 K/UL (150-450) Mean Platelet Volume 6.7 FL (6.5-10.1) Neutrophils (%) (Auto) 65.9 % (45.0-75.0) Lymphocytes (%) (Auto) 18.1 % (20.0-45.0) L Monocytes (%) (Auto) 12.0 % (1.0-10.0) H Eosinophils (%) (Auto) 1.6 % (0.0-3.0) Basophils (%) (Auto) 2.4 % (0.0-2.0) H Sodium Level 137 mEQ/L (135-145) Potassium Level 5.0 mEQ/L (3.4-4.9) H Chloride Level 96 mEQ/L (98-107) L Carbon Dioxide Level 34 mEQ/L (20-30) H Anion Gap 7 (5-15) Blood Urea Nitrogen 23 mg/dL (7-23) Creatinine 0.8 mg/dL (0.7-1.2) Estimat Glomerular Filtration Rate mL/min (>60) Glucose Level 134 mg/dL (74-106) H Calcium Level 9.5 mg/dL (8.6-10.2) Intake and Output 12/12/16 12/13/16 19:00 07:00 Intake Total 750 ml 660 ml Balance 750 ml 660 ml Intake Oral 0 ml Free Water 100 ml 60 ml Tube Feeding 650 ml 600 ml # Voids 2 # Bowel Movements 1 Objective General Appearance: WD/WN, mild distress EENT: PERRL/EOMI, normal ENT inspection Neck: non-tender, normal alignment, supple Cardiovascular: normal peripheral pulses, normal rate, regular rhythm, no gallop/murmur, no JVD Respiratory/Chest: respiratory distress, crackles/rales, rhonchi - bilaterally , expiratory wheezing Abdomen: normal bowel sounds, non tender, soft, no organomegaly, no mass Extremities: normal range of motion Neurologic: fiscal services manager II-XII grossly normal Skin: normal pigmentation, warm/dry Assessment/Plan Problem List: (1) CAD (coronary artery disease) (2) Dysphagia Assessment & Plan: S/P G-tube (3) SOB (shortness of breath) (4) Pneumonia Assessment & Plan: see ID and pulmonary note. Cont levaquin per G-tube and D/ C cefepime per ID. (5) CVA (cerebral vascular accident) Status: progressing JOHN KNOX Dec 13, 2016 17:22
--- NOTE | 2016-12-13 22:34 | Pulmonology Progress Note ---
Assessment/Plan Problems: (1) Pneumonia (2) Cachectic (3) CVA (cerebral vascular accident) (4) Feeding by G-tube Assessment/Plan improving tolerating feeding dyspnea has resolved titrate fio2 to sat of 92% on levofloxacine dc planning in progress. Subjective ROS Limited/Unobtainable: Yes Allergies: Coded Allergies: No Known Allergies (Unverified , 12/08/16) Objective Last 24 Hour Vital Signs Date Time Temp Pulse Resp B/P Pulse Ox O2 Delivery O2 Flow Rate FiO2 12/13/16 20:44 85 18 100 Nasal Cannula 2.0 12/13/16 20:44 86 18 96 Nasal Cannula 2.0 12/13/16 20:42 88 18 Nasal Cannula 2.0 12/13/16 20:00 97.9 86 20 132/78 94 12/13/16 15:27 98.6 84 21 139/87 94 Room Air 12/13/16 11:27 98.2 81 21 126/66 95 Room Air 12/13/16 07:42 97.5 73 21 116/61 100 Nasal Cannula 2.0 12/13/16 06:49 73 20 Nasal Cannula 2.0 12/13/16 04:00 97.5 67 20 129/59 100 Nasal Cannula 2.0 12/13/16 00:00 97.7 77 18 124/70 98 Nasal Cannula 2.0 Intake and Output 12/12/16 12/13/16 19:00 07:00 Intake Total 750 ml 660 ml Balance 750 ml 660 ml Intake Oral 0 ml Free Water 100 ml 60 ml Tube Feeding 650 ml 600 ml # Voids 2 # Bowel Movements 1 General Appearance: cachetic HEENT: normocephalic, atraumatic Respiratory/Chest: chest wall non-tender, lungs clear Cardiovascular: normal peripheral pulses Abdomen: normal bowel sounds, soft, non tender Extremities: no cyanosis Laboratory Tests 12/13/16 06:05: White Blood Count 5.0, Red Blood Count 3.88L, Hemoglobin 12.1L, Hematocrit 38.2L , Mean Corpuscular Volume 98, Mean Corpuscular Hemoglobin 31.0, Mean Corpuscular Hemoglobin Concent 31.5L, Red Cell Distribution Width 11.9, Platelet Count 233, Mean Platelet Volume 6.7, Neutrophils (%) (Auto) 65.9, Lymphocytes (%) (Auto) 18.1L, Monocytes (%) (Auto) 12.0H, Eosinophils (%) (Auto ) 1.6, Basophils (%) (Auto) 2.4H, Sodium Level 137, Potassium Level 5.0H, Chloride Level 96L, Carbon Dioxide Level 34H, Anion Gap 7, Blood Urea Nitrogen 23, Creatinine 0.8, Estimat Glomerular Filtration Rate , Glucose Level 134H, Calcium Level 9.5 Current Medications Medications (Trade) Dose Ordered Sig/Ladarisu Route PRN Reason Start Time Stop Time Status Last Admin Dose Admin Acetaminophen (Tylenol) 650 mg Q4H PRN ORAL fever 12/11/16 02:45 01/10/17 02:44 Al Hydroxide/Mg Hydroxide (Mylanta II) 30 ml Q6H PRN GT dyspepsia 12/11/16 04:45 01/10/17 04:44 Albuterol/ Ipratropium (DuoNeb 0.5-3(2.5)mg/3ml) 3 ml Q4H PRN HHN Shortness of Breath 12/11/16 01:00 12/16/16 00:59 12/13/16 20:40 Heparin Sodium (Porcine) (Heparin 5000 units/ml) 5,000 units EVERY 12 HOURS SUBQ 12/11/16 09:00 01/10/17 08:59 12/13/16 21:42 Levofloxacin (Levaquin) 500 mg DAILY PEG 12/11/16 09:00 12/16/16 08:59 12/13/16 08:17 Nitroglycerin (Ntg) 0.4 mg Q5M PRN SL Prn Chest Pain 12/10/16 23:45 01/09/17 23:44 Ondansetron HCl (Zofran) 4 mg Q6H PRN IVP Nausea & Vomiting 12/11/16 04:45 01/10/17 04:44 12/12/16 06:49 Polyethylene Glycol (Miralax) 17 gm DAILYPRN PRN GT Constipation 12/11/16 06:45 01/10/17 06:44 12/11/16 09:02 Promethazine HCl/ Codeine (Phenergan with Codeine) 5 ml Q4H PRN GT For Cough 12/11/16 02:45 01/10/17 02:44 Temazepam (Restoril) 15 mg HSPRN PRN GT Insomnia 12/11/16 06:45 12/18/16 06:44 CHARI WARD Dec 13, 2016 22:34
[2016-12-14 04:00] VITALS: BP 106/64
[2016-12-14 07:01] LABS: BASOPHILS % (AUTO) 2.7 % (0.0-2.0); EOSINOPHILS % (AUTO) 1.6 % (0.0-3.0); LYMPHOCYTES % (AUTO) 17.3 % (20.0-45.0); MEAN CORPUSCULAR HEMOGLOBIN 30.9 PG (27.0-31.0); MEAN CORPUSCULAR HGB CONC 31.6 G/DL (32.0-36.0); MEAN CORPUSCULAR VOLUME 98 FL (80-99); MEAN PLATELET VOLUME 6.7 FL (6.5-10.1); NEUTROPHILS % (AUTO) 66.3 % (45.0-75.0); PLATELET COUNT 247 K/UL (150-450); RED BLOOD COUNT 3.91 M/UL (4.70-6.10); RED CELL DISTRIBUTION WIDTH 11.8 % (11.6-14.8); WHITE BLOOD COUNT 5.6 K/UL (4.8-10.8)
[2016-12-14 07:27] LABS: ANION GAP 9 (5-15); CARBON DIOXIDE 32 mEQ/L (20-30); CHLORIDE 98 mEQ/L (98-107); CREATININE 0.9 mg/dL (0.7-1.2); HEMOLYSIS 2; POTASSIUM 4.7 mEQ/L (3.4-4.9); SODIUM 139 mEQ/L (135-145)
[2016-12-14 07:51] VITALS: BP 125/76
[2016-12-14] MEDS: Levofloxacin 500mg tab PEG SCH (08:16)
[2016-12-14] MEDS: Heparin 5000 units/ml inj SUBQ SCH (08:16)
[2016-12-14 11:21] VITALS: BP 131/78
[2016-12-14] MEDS ORDERED: LEVAQUIN500 MG PEG (13:06)
--- NOTE | 2016-12-14 13:08 | Internal Med Progress Note ---
Subjective Date of Service: Dec 14, 2016 Physician Name John Knox Attending Physician Eros Patterson MD Current Medications Medications (Trade) Dose Ordered Sig/Ladarius Route PRN Reason Start Time Stop Time Status Last Admin Dose Admin Acetaminophen (Tylenol) 650 mg Q4H PRN ORAL fever 12/11/16 02:45 01/10/17 02:44 Al Hydroxide/Mg Hydroxide (Mylanta II) 30 ml Q6H PRN GT dyspepsia 12/11/16 04:45 01/10/17 04:44 Albuterol/ Ipratropium (DuoNeb 0.5-3(2.5)mg/3ml) 3 ml Q4H PRN HHN Shortness of Breath 12/11/16 01:00 12/16/16 00:59 12/13/16 20:40 Heparin Sodium (Porcine) (Heparin 5000 units/ml) 5,000 units EVERY 12 HOURS SUBQ 12/11/16 09:00 01/10/17 08:59 12/14/16 08:16 Levofloxacin (Levaquin) 500 mg DAILY PEG 12/11/16 09:00 12/16/16 08:59 12/14/16 08:16 Nitroglycerin (Ntg) 0.4 mg Q5M PRN SL Prn Chest Pain 12/10/16 23:45 01/09/17 23:44 Ondansetron HCl (Zofran) 4 mg Q6H PRN IVP Nausea & Vomiting 12/11/16 04:45 01/10/17 04:44 12/12/16 06:49 Polyethylene Glycol (Miralax) 17 gm DAILYPRN PRN GT Constipation 12/11/16 06:45 01/10/17 06:44 12/11/16 09:02 Promethazine HCl/ Codeine (Phenergan with Codeine) 5 ml Q4H PRN GT For Cough 12/11/16 02:45 01/10/17 02:44 Temazepam (Restoril) 15 mg HSPRN PRN GT Insomnia 12/11/16 06:45 12/18/16 06:44 Allergies: Coded Allergies: No Known Allergies (Unverified , 12/08/16) ROS Limited/Unobtainable: No Constitutional: Reports: no symptoms HEENT: Reports: no symptoms Cardiovascular: Reports: no symptoms Respiratory: Reports: shortness of breath Gastrointestinal/Abdominal: Reports: no symptoms Genitourinary: Reports: no symptoms Neurologic/Psychiatric: Reports: no symptoms Subjective 86 YO M admitted with shortness of breath; now RLL pneumonia. Cover for Int Med-Dr Patterson. Tolerating nasal canula. Objective Last Vital Signs Date Time Temp Pulse Resp B/P Pulse Ox O2 Delivery O2 Flow Rate FiO2 12/14/16 11:21 97.0 86 24 131/78 95 Room Air 12/14/16 08:10 2.0 12/12/16 07:11 32 Laboratory Tests Test 12/14/16 06:10 White Blood Count 5.6 K/UL (4.8-10.8) Red Blood Count 3.91 M/UL (4.70-6.10) L Hemoglobin 12.1 G/DL (14.2-18.0) L Hematocrit 38.3 % (42.0-52.0) L Mean Corpuscular Volume 98 FL (80-99) Mean Corpuscular Hemoglobin 30.9 PG (27.0-31.0) Mean Corpuscular Hemoglobin Concent 31.6 G/DL (32.0-36.0) L Red Cell Distribution Width 11.8 % (11.6-14.8) Platelet Count 247 K/UL (150-450) Mean Platelet Volume 6.7 FL (6.5-10.1) Neutrophils (%) (Auto) 66.3 % (45.0-75.0) Lymphocytes (%) (Auto) 17.3 % (20.0-45.0) L Monocytes (%) (Auto) 12.0 % (1.0-10.0) H Eosinophils (%) (Auto) 1.6 % (0.0-3.0) Basophils (%) (Auto) 2.7 % (0.0-2.0) H Sodium Level 139 mEQ/L (135-145) Potassium Level 4.7 mEQ/L (3.4-4.9) Chloride Level 98 mEQ/L (98-107) Carbon Dioxide Level 32 mEQ/L (20-30) H Anion Gap 9 (5-15) Blood Urea Nitrogen 26 mg/dL (7-23) H Creatinine 0.9 mg/dL (0.7-1.2) Estimat Glomerular Filtration Rate mL/min (>60) Glucose Level 133 mg/dL (74-106) H Calcium Level 10.0 mg/dL (8.6-10.2) Intake and Output 12/13/16 12/14/16 19:00 07:00 Intake Total 410 ml 260 ml Output Total 100 ml Balance 310 ml 260 ml Intake Oral 0 ml Free Water 60 ml 60 ml Tube Feeding 350 ml 200 ml Output Urine Total 100 ml # Voids 3 2 # Bowel Movements 2 2 Objective General Appearance: WD/WN, mild distress EENT: PERRL/EOMI, normal ENT inspection Neck: non-tender, normal alignment, supple Cardiovascular: normal peripheral pulses, normal rate, regular rhythm, no gallop/murmur, no JVD Respiratory/Chest: respiratory distress, crackles/rales, rhonchi - bilaterally , expiratory wheezing Abdomen: normal bowel sounds, non tender, soft, no organomegaly, no mass Extremities: normal range of motion Neurologic: cyber security manager II-XII grossly normal Skin: normal pigmentation, warm/dry Assessment/Plan Problem List: (1) CAD (coronary artery disease) (2) Dysphagia Assessment & Plan: S/P G-tube (3) SOB (shortness of breath) (4) Pneumonia Assessment & Plan: see ID and pulmonary note. Cont levaquin per G-tube and D/ C cefepime per ID. (5) CVA (cerebral vascular accident) Status: progressing Assessment/Plan Discharge planning: Home with [facility]. Levaquin 500 mg q day for 7 days JOHN KNOX Dec 14, 2016 13:08
--- NOTE | 2016-12-14 14:06 | Infectious Diseases Prog Note ---
Assessment/Plan Assessment/Plan ASSESSMENT: 86 y/o male with: // Probable partially treated PNA - SCx P.mirabilis, legionella UAg(-) - CTA: Negative for evidence of acute pulmonary embolus. Atelectasis and consolidation of much of the posterior right lower lobe. Bilateral basilar atelectasis and/or scarring. Evidence of old granulomatous disease, with a right upper lobe calcified granuloma and extensive calcification of multiple mediastinal lymph nodes - recent admission [facility] // Afebrile without leukocytosis // Elevated LFTs / transaminitis // h/o CVA // h/o CAD - TTE: EF 50%, grade I diastolic dysfunction, mild-mod TR, mod AR, mild pulmonary HTN // Dysphagia SP PEG // NKDA // Full Code PLAN: - Ok to DC on PO levaquin x1 more day from ID standpoint - Rx on chart. ( ABX d # 6 / 7 ) ( 12/12 SP cefepime d# 4 ) - monitor CBC, temperatures, re-culture if acute change - monitor BMP - monitor CXR Subjective Allergies: Coded Allergies: No Known Allergies (Unverified , 12/08/16) Subjective remains afebrile. denies SOB DC planning ongoing Objective Vital Signs Last 24 Hour Vital Signs Date Time Temp Pulse Resp B/P Pulse Ox O2 Delivery O2 Flow Rate FiO2 12/14/16 11:21 97.0 86 24 131/78 95 Room Air 12/14/16 08:10 87 18 Nasal Cannula 2.0 12/14/16 07:51 97.3 82 18 125/76 94 Nasal Cannula 2.0 12/14/16 04:00 97.8 75 20 106/64 96 Nasal Cannula 2.0 12/13/16 23:47 97.8 91 20 123/72 98 Nasal Cannula 2.0 12/13/16 20:44 85 18 100 Nasal Cannula 2.0 12/13/16 20:44 86 18 96 Nasal Cannula 2.0 12/13/16 20:42 88 18 Nasal Cannula 2.0 12/13/16 20:00 97.9 86 20 132/78 94 12/13/16 15:27 98.6 84 21 139/87 94 Room Air Height (Feet): 5 Height (Inches): 9.00 Weight (Pounds): 170 General Appearance: no acute distress Respiratory/Chest: no respiratory distress Cardiovascular: normal rate, regular rhythm Abdomen: normal bowel sounds, soft, non tender, non distended Laboratory Tests Test 12/14/16 06:10 White Blood Count 5.6 K/UL (4.8-10.8) Red Blood Count 3.91 M/UL (4.70-6.10) L Hemoglobin 12.1 G/DL (14.2-18.0) L Hematocrit 38.3 % (42.0-52.0) L Mean Corpuscular Volume 98 FL (80-99) Mean Corpuscular Hemoglobin 30.9 PG (27.0-31.0) Mean Corpuscular Hemoglobin Concent 31.6 G/DL (32.0-36.0) L Red Cell Distribution Width 11.8 % (11.6-14.8) Platelet Count 247 K/UL (150-450) Mean Platelet Volume 6.7 FL (6.5-10.1) Neutrophils (%) (Auto) 66.3 % (45.0-75.0) Lymphocytes (%) (Auto) 17.3 % (20.0-45.0) L Monocytes (%) (Auto) 12.0 % (1.0-10.0) H Eosinophils (%) (Auto) 1.6 % (0.0-3.0) Basophils (%) (Auto) 2.7 % (0.0-2.0) H Sodium Level 139 mEQ/L (135-145) Potassium Level 4.7 mEQ/L (3.4-4.9) Chloride Level 98 mEQ/L (98-107) Carbon Dioxide Level 32 mEQ/L (20-30) H Anion Gap 9 (5-15) Blood Urea Nitrogen 26 mg/dL (7-23) H Creatinine 0.9 mg/dL (0.7-1.2) Estimat Glomerular Filtration Rate mL/min (>60) Glucose Level 133 mg/dL (74-106) H Calcium Level 10.0 mg/dL (8.6-10.2) Current Medications Medications (Trade) Dose Ordered Sig/Ladarius Route PRN Reason Start Time Stop Time Status Last Admin Dose Admin Acetaminophen (Tylenol) 650 mg Q4H PRN ORAL fever 12/11/16 02:45 01/10/17 02:44 Al Hydroxide/Mg Hydroxide (Mylanta II) 30 ml Q6H PRN GT dyspepsia 12/11/16 04:45 01/10/17 04:44 Albuterol/ Ipratropium (DuoNeb 0.5-3(2.5)mg/3ml) 3 ml Q4H PRN HHN Shortness of Breath 12/11/16 01:00 12/16/16 00:59 12/13/16 20:40 Heparin Sodium (Porcine) (Heparin 5000 units/ml) 5,000 units EVERY 12 HOURS SUBQ 12/11/16 09:00 01/10/17 08:59 12/14/16 08:16 Levofloxacin (Levaquin) 500 mg DAILY PEG 12/11/16 09:00 12/16/16 08:59 12/14/16 08:16 Nitroglycerin (Ntg) 0.4 mg Q5M PRN SL Prn Chest Pain 12/10/16 23:45 01/09/17 23:44 Ondansetron HCl (Zofran) 4 mg Q6H PRN IVP Nausea & Vomiting 12/11/16 04:45 01/10/17 04:44 12/12/16 06:49 Polyethylene Glycol (Miralax) 17 gm DAILYPRN PRN GT Constipation 12/11/16 06:45 01/10/17 06:44 12/11/16 09:02 Promethazine HCl/ Codeine (Phenergan with Codeine) 5 ml Q4H PRN GT For Cough 12/11/16 02:45 01/10/17 02:44 Temazepam (Restoril) 15 mg HSPRN PRN GT Insomnia 12/11/16 06:45 12/18/16 06:44 JAZLYN PAYTON Dec 14, 2016 14:06
--- NOTE | 2016-12-14 15:23 | Pulmonology Progress Note ---
Assessment/Plan Problems: (1) Pneumonia (2) Cachectic (3) CVA (cerebral vascular accident) (4) Feeding by G-tube Assessment/Plan improving tolerating feeding dyspnea has resolved titrate fio2 to sat of 92% dc planning in progress. Subjective ROS Limited/Unobtainable: Yes Interval Events: looks comfortable Allergies: Coded Allergies: No Known Allergies (Unverified , 12/08/16) Objective Last 24 Hour Vital Signs Date Time Temp Pulse Resp B/P Pulse Ox O2 Delivery O2 Flow Rate FiO2 12/14/16 11:21 97.0 86 24 131/78 95 Room Air 12/14/16 08:10 87 18 Nasal Cannula 2.0 12/14/16 07:51 97.3 82 18 125/76 94 Nasal Cannula 2.0 12/14/16 04:00 97.8 75 20 106/64 96 Nasal Cannula 2.0 12/13/16 23:47 97.8 91 20 123/72 98 Nasal Cannula 2.0 12/13/16 20:44 85 18 100 Nasal Cannula 2.0 12/13/16 20:44 86 18 96 Nasal Cannula 2.0 12/13/16 20:42 88 18 Nasal Cannula 2.0 12/13/16 20:00 97.9 86 20 132/78 94 12/13/16 15:27 98.6 84 21 139/87 94 Room Air Intake and Output 12/13/16 12/14/16 19:00 07:00 Intake Total 410 ml 310 ml Output Total 100 ml Balance 310 ml 310 ml Intake Oral 0 ml Free Water 60 ml 60 ml Tube Feeding 350 ml 250 ml Output Urine Total 100 ml # Voids 3 2 # Bowel Movements 2 2 General Appearance: cachetic Respiratory/Chest: chest wall non-tender, lungs clear Cardiovascular: normal peripheral pulses, normal rate Abdomen: normal bowel sounds, soft, non tender Genitourinary: normal external genitalia Skin: no rash, no lesions Neurologic/Psychiatric: third officer II-XII grossly normal Laboratory Tests 12/14/16 06:10: White Blood Count 5.6, Red Blood Count 3.91L, Hemoglobin 12.1L, Hematocrit 38.3L , Mean Corpuscular Volume 98, Mean Corpuscular Hemoglobin 30.9, Mean Corpuscular Hemoglobin Concent 31.6L, Red Cell Distribution Width 11.8, Platelet Count 247, Mean Platelet Volume 6.7, Neutrophils (%) (Auto) 66.3, Lymphocytes (%) (Auto) 17.3L, Monocytes (%) (Auto) 12.0H, Eosinophils (%) (Auto ) 1.6, Basophils (%) (Auto) 2.7H, Sodium Level 139, Potassium Level 4.7, Chloride Level 98, Carbon Dioxide Level 32H, Anion Gap 9, Blood Urea Nitrogen 26H, Creatinine 0.9, Estimat Glomerular Filtration Rate , Glucose Level 133H, Calcium Level 10.0 Current Medications Medications (Trade) Dose Ordered Sig/Ladarius Route PRN Reason Start Time Stop Time Status Last Admin Dose Admin Acetaminophen (Tylenol) 650 mg Q4H PRN ORAL fever 12/11/16 02:45 01/10/17 02:44 Al Hydroxide/Mg Hydroxide (Mylanta II) 30 ml Q6H PRN GT dyspepsia 12/11/16 04:45 01/10/17 04:44 Albuterol/ Ipratropium (DuoNeb 0.5-3(2.5)mg/3ml) 3 ml Q4H PRN HHN Shortness of Breath 12/11/16 01:00 12/16/16 00:59 12/13/16 20:40 Heparin Sodium (Porcine) (Heparin 5000 units/ml) 5,000 units EVERY 12 HOURS SUBQ 12/11/16 09:00 01/10/17 08:59 12/14/16 08:16 Levofloxacin (Levaquin) 500 mg DAILY PEG 12/11/16 09:00 12/16/16 08:59 12/14/16 08:16 Nitroglycerin (Ntg) 0.4 mg Q5M PRN SL Prn Chest Pain 12/10/16 23:45 01/09/17 23:44 Ondansetron HCl (Zofran) 4 mg Q6H PRN IVP Nausea & Vomiting 12/11/16 04:45 01/10/17 04:44 12/12/16 06:49 Polyethylene Glycol (Miralax) 17 gm DAILYPRN PRN GT Constipation 12/11/16 06:45 01/10/17 06:44 12/11/16 09:02 Promethazine HCl/ Codeine (Phenergan with Codeine) 5 ml Q4H PRN GT For Cough 12/11/16 02:45 01/10/17 02:44 Temazepam (Restoril) 15 mg HSPRN PRN GT Insomnia 12/11/16 06:45 12/18/16 06:44 CHARI WARD Dec 14, 2016 15:23
[2016-12-14] MEDS ORDERED: NS 550ML IV ONE (15:24)
[2016-12-14] MEDS ORDERED: Sterile Water Irrig 1000ml IRRIG ONE (15:24)
--- NOTE | 2016-12-16 08:06 | Discharge Summary ---
Discharge Summary Hospital Course Date of Admission Dec 08, 2016 at 20:26 Date of Discharge Dec 14, 2016 at 15:25 Admitting Diagnosis hypoxia HPI Acosta Weston is a 86 year old male who was admitted on Dec 08, 2016 at 20:26 for Hypoxia Hospital Course [id number] Discharge Discharge Disposition Patient was discharged to Home with Home Health(06) Discharge Diagnoses: Mayra Acosta NP Dec 16, 2016 08:06
--- NOTE | 2016-12-16 09:08 | Discharge Summary 2 SIG ---
DATE OF ADMISSION: 12/08/2016 DATE OF DISCHARGE: 12/14/2016 CONSULTANTS: 1. Nino Salazar M.D. 2. Paty Eduardo M.D. BRIEF HOSPITAL COURSE: The patient is an 86-year-old male, who came in with complaints of shortness of breath. The patient was just discharged from [facility] a day prior. Chest x-ray done at ED showed right lower lobe pneumonia. CT angio of the chest was negative for pulmonary embolism. He was started on empiric cefepime and Levaquin. Tube feedings were started with strict aspiration precautions. Echocardiogram showed ejection fraction of 50% with RVSP of 39 consistent with pulmonary hypertension. Sputum culture showed growth of Proteus mirabilis. Legionella urine antigen was negative. He has been tolerating nasal cannula and was breathing better. The patient was discharged home with home health to continue Levaquin 500 mg daily for seven days. FINAL DIAGNOSES: 1. Pneumonia. 2. Dysphagia status post gastrostomy tube. 3. Coronary artery disease. 4. Old cerebrovascular accident. 5. Elevated liver transaminases. 6. Sacral deep tissue injury and coccyx stage II partial-thickness present on admission. John Nance M.D. I have been assigned to dictate discharge summary on this account and I was not involved in the patient's management. Mayra Acosta N.P. DR: Ortega JOB#: [id number] CC:
--- NOTE | 2016-12-28 09:43 | Diagnostic Imaging Report ---
APPROVED REPORT CPT Code: 41268 Present Symptoms Lower Extremity Pain: Bilateral BILATERAL: Imaging reveals a patent deep venous system bilaterally. There is no evidence of thrombus within the femoral, popliteal or tibial segments. The greater saphenous veins are also within normal limits. Doppler indicates normal spontaneous flow within these segments.
== END 2016-12-14 15:25 | disposition home health service (06) | DRG 178 ==
LOC: EDBD 19:50 → EMR 20:25 → 2E 20:26 → EDBD 20:26 → EDBEDREQ 21:29 → 4E 12-10 23:11
DX: J15.6 Pneumonia due to other Gram-negative bacteria (principal); R64 Cachexia; L89.159 Pressure ulcer of sacral region, unspecified stage; L89.152 Pressure ulcer of sacral region, stage 2; I27.2 Other secondary pulmonary hypertension; R13.10 Dysphagia, unspecified; Z43.1 Encounter for attention to gastrostomy; J98.11 Atelectasis; I25.10 Atherosclerotic heart disease of native coronary artery without angina pectoris; Z86.73 Personal history of transient ischemic attack (TIA), and cerebral infarction without residual deficits; Z85.46 Personal history of malignant neoplasm of prostate
CPT/HCPCS: 36415; 36600; 71010; 71275; 80048; 80053; 80069; 82164; 82550; 82553; 82803; 83880; 84484; 85025; 85379; 87070; 87081; 87181; 87205; 93005; 93306; 93970; 94640; 94664; J2405; J7620